=== PATIENT | male | born 1960 | race American Indian/Alaskan Native ===

== ENCOUNTER 2018-03-23 14:00 | Inpatient (IN) | payer OTHER ==
[2018-03-23] MEDS ORDERED: Metoprolol 1 mg/ml Inj IVP STA (14:24)
[2018-03-23] MEDS ORDERED: Nitroglycerin 2% Ointment Foilpak UD TOP STA (14:28)
[2018-03-23] MEDS ORDERED: Metoprolol 1 mg/ml Inj IVP ONE (14:42)
[2018-03-23] MEDS ORDERED: Nitroglycerin 2% Ointment Foilpak UD TOP ONE (14:43)
--- NOTE | 2018-03-23 14:44 | ED PDOC ---
HPI: Chest Pain Time Seen by Provider: 03/23/18 14:12 Chief Complaint (Nursing): Chest Pain Chief Complaint (Provider): Chest Pain History Per: Patient History/Exam Limitations: no limitations Onset/Duration Of Symptoms: Days (x1) Current Symptoms Are (Timing): Still Present Severity: Severe Nitro Therapy Administered: 3, Per EMS Additional Complaint(s): 58 y/o male with a PMHx of DM (Type II), HTN and End Stage Chronic Kidney Disease presents to the ED complaining of chest pain, onset today. Patient reports of vomiting yesterday that worsened today and came with severe chest pain in the substernal area. Patient additionally reports of having type II diabetes that is no longer controlled by medications but controlled by diet. Patient states HTN has been difficult to control. Patient's partner reports while at dialysis yesterday, he began vomiting and was given antibiotics there to control vomiting. However, patient reports he is unsure exactly what they gave him. Patient states he has not been able to take HTN medications today due to vomiting. EMS was called and paramedics arrived on the scene and administered Zofran and 3 tablets of Nitroglycerin. Patient continues to complain of pain here in the ED. Blood pressure is still elevated and pain is now associated with shortness of breath and nausea. Patient reports chest pain is non-radiating. Patient has not vomited while in the ED. Patient states he usually goes to [facility] because his physicians are affiliated there, however patient did not like his last encounter with a physician there so he decided to come here instead. PMD: Sigifredo Barton Past Medical History Reviewed: Historical Data, Nursing Documentation, Vital Signs Vital Signs: Last Vital Signs Temp 97.6 F 03/23/18 14:20 Pulse 79 03/23/18 14:57 Resp 19 03/23/18 14:20 BP 240/140 H 03/23/18 14:51 Pulse Ox 97 03/23/18 14:57 - Medical History PMH: Diabetes (Type II ), HTN, Pneumonia, Pneumothorax, Chronic Kidney Disease - Surgical History Surgical History: No Surg Hx - Family History Family History: States: No Known Family Hx - Social History Current smoker - smoking cessation education provided: No Alcohol: None Drugs: Denies - Allergies Allergies/Adverse Reactions: Allergies Allergy/AdvReac Type Severity Reaction Status Date / Time ibuprofen [From Motrin] Allergy RASH Verified 03/23/18 14:15 shellfish derived Allergy SHORTNESS Verified 03/23/18 14:14 OF BREATH nuts Allergy RASH Uncoded 03/23/18 14:13 salmon Allergy RASH Uncoded 03/23/18 14:15 DAVID Risk Score for UA/NSTEMI - DAVID Risk Score Age > 64: NO 3 or more CAD Risk Factors: NO Known CAD (Stenosis greater than 50%): NO Aspirin use in past 7 days: NO EKG ST changes greater than 0.5mm: NO Positive Cardiac Marker: NO DAVID Score: 0 Risk %: 5% Curb-65 Severity Score - CURB-65 Severity Score Confusion: No Bun >19mg/dl (>7mmol/L): No Respiratory Rate greater than/equal to 30: No Systolic BP <90 or Diastolic BP less than/equal 60mmHg: No Age >64: No Curb-65 Score: 0 Percentage 30-day mortality: 0.6% Wells Criteria for PE - Wells Criteria for Pulmonary Embolism Clinical Signs and Symptoms of DVT: No P.E is #1 Diagnosis, or Equally Likely: No Heart Rate >100: No Immobilization at least 3 days;Surgery previous 4 weeks: No Previous, objectively diagnosed PE or DVT: No Hemoptysis: No Malignancy w/treatment within 6 months, or palliative: No Total Score: 0 Review of Systems ROS Statement: Except As Marked, All Systems Reviewed And Found Negative Cardiovascular: Positive for: Chest Pain Respiratory: Positive for: Shortness of Breath Gastrointestinal: Positive for: Nausea, Vomiting Physical Exam - Reviewed Nursing Documentation Reviewed: Yes Vital Signs Reviewed: Yes - Physical Exam Appears: Positive for: Uncomfortable (Moderate discomfort. Patient lying on his side in the ED), In Acute Distress Head Exam: Positive for: ATRAUMATIC, NORMOCEPHALIC Skin: Positive for: Normal Color, Warm, Dry Cardiovascular/Chest: Positive for: Regular Rate, Rhythm. Negative for: Murmur Respiratory: Positive for: Normal Breath Sounds. Negative for: Respiratory Distress Extremity: Positive for: Swelling (lower extremity edema (Unsure depth due to patient's discomfort when someone touches his leg)) Neurologic/Psych: Positive for: Alert (Awake (Patient's eyes are closed due to pain)), Oriented. Negative for: Motor/Sensory Deficits - ECG ECG Rhythm: Positive for: Sinus Rhythm Interpretation Of Abn EKG: Inverted T-Wave in lead 5 and 6 and Biphasic ABL Rate: 79 O2 Sat by Pulse Oximetry: 97 (RA) Pulse Ox Interpretation: Normal Medical Decision Making Medical Decision Making: Time: 1438 Impression: Chest Pain Plan: -- EKG -- Lipase -- Troponin I -- CBC with differentials -- PTT -- CXR One View -- Glucose, POC -- Metoprolol 5 mg IVP -- Morphine 2 mg IVP -- Nitroglycerin 2% 1 ea TOP -- Business Insurance Agent -- IV Insertion -- Urinalysis -- Most likely due to vomiting. HTN poorly controlled. Disposition - Clinical Impression Clinical Impression: Chest pain - Patient ED Disposition Is Patient to be Admitted: Transfer of Care - Disposition Disposition: Transfer of Care Disposition Time: 15:07 Condition: GUARDED Forms: [employer] (Kosovan) Patient Signed Over To: Manuel Rea
[2018-03-23 15:20] LABS: BASO # 0.1 K/uL (0.0-0.2); BASO % 1.1 % (0.0-2.0); EOS # 0.1 K/uL (0.0-0.7); EOS % 1.6 % (0.0-4.0); HEMOGLOBIN 9.2 g/dL (12.0-18.0); LYMPH # 0.4 K/uL (1.0-4.3); LYMPH % 4.6 % (20.0-40.0); MEAN CELL VOLUME 84.8 fl (80.0-94.0); MEAN CORPUSCULAR HEMOGLOBIN 27.4 pg (27.0-31.0); MEAN CORPUSCULAR HGB CONC 32.3 g/dL (33.0-37.0); MEAN PLATELET VOLUME 7.1 fl (7.2-11.7); MONO # 0.3 K/uL (0.0-0.8); MONO % 3.8 % (0.0-10.0); NEUT # 7.2 K/uL (1.8-7.0); NEUT % 88.9 % (50.0-75.0); PLATELET COUNT 176 K/uL (130-400); RBC 3.37 Mil/uL (4.40-5.90); WHITE BLOOD COUNT 8.1 K/uL (4.8-10.8)
[2018-03-23 15:29] LABS: PROTHROMBIN TIME 10.8 Seconds (9.8-13.1)
[2018-03-23 15:32] LABS: ALB/GLOB RATIO 1.2 (1.0-2.1); ALBUMIN 3.2 g/dL (3.5-5.0); CALCIUM 9.3 mg/dL (8.4-10.2); PARTIAL THROMBOPLASTIN TIME 38.8 Seconds (25.6-37.1)
[2018-03-23 15:43] LABS: TROPONIN I 0.021 ng/mL (0.00-0.120)
--- NOTE | 2018-03-23 16:10 | ED PDOC ---
- Laboratory Results Result Diagrams: 03/23/18 15:16 03/23/18 15:16 Interpretation Of Abn Labs: bun and cr elevation - ECG ECG: Positive for: Interpreted By Me, Viewed By Me ECG Rhythm: Positive for: ST/T Changes O2 Sat by Pulse Oximetry: 97 Pulse Ox Interpretation: Normal - Radiology X-Ray: Read By Radiologist X-Ray Interpretation: Other (vascular congestion and effusions b/l) - CT Scan/US ct Other Rad Studies (CT/US): Read By Radiologist Other Rad Interpretation: no acute bowel inflammation - Progress ED Course And Treament: 1508: Stable. Took over care from Dr. [place]. Clint on labs. Here with abd pain, chest pain, nausea, vomit. Blood pressure has been high. Seen by [facility] recently and had permacath put in. Had dialysis done yesterday. Hx: pneumonia , pulm effusion, dialysis with kidney failure, htn, dm. 1827: Stable. AAOx3. Pain free. Spoke with Dr. Bryan. Will admit tele obs. Likely multiple chronic findings on CT. BP reduced from 240 to 190 sytolic. Will continue monitoring. Do not want to drop BP too much over a short period. Dr. Bryan will address further orders when pt. reaches floor. Will hold ASA as pt. states he can't take it. Disposition - Clinical Impression Clinical Impression: Chest pain, Abdominal pain, Vomiting, Hypertensive urgency - POA Present On Arrival: None - Disposition Disposition: Hospitalized as Observation Patient Disposition Time: 18:42 Condition: FAIR
[2018-03-23] MEDS ORDERED: Morphine 4 MG/ML VIAL ONE ×2 (16:14→22:03)
--- NOTE | 2018-03-23 16:16 | RAD ---
Date of service: 03/23/2018 PROCEDURE: CHEST RADIOGRAPH, 1 VIEW HISTORY: cp COMPARISON: None available. FINDINGS: Right IJ dialysis catheter with tips in the SVC. LUNGS: Findings suggest mild pulmonary valgus congestion possibly due to fluid overload with right lower lobe atelectasis and or infiltrate and right-sided effusion. Small left-sided effusion also felt to be present with left basilar atelectasis. PLEURA: No pneumothorax or pleural fluid seen. CARDIOVASCULAR: Marked cardiomegaly. OSSEOUS STRUCTURES: No significant abnormalities. VISUALIZED UPPER ABDOMEN: Normal. OTHER FINDINGS: None. IMPRESSION: Findings suggest mild pulmonary valgus congestion possibly due to fluid overload with right lower lobe atelectasis and or infiltrate and right-sided effusion. Small left-sided effusion also felt to be present with left basilar atelectasis.
[2018-03-23] MEDS: Labetalol 5 mg/ml Inj 20ML IVP ONE ×2 (16:22→20:38)
[2018-03-23] MEDS: Morphine 4 MG/ML VIAL IV ONE ×2 (16:31→22:03)
[2018-03-23 17:09] LABS: ANISOCYTOSIS SLIGHT; BASOPHIL 1 % (0-2); LYMPHOCYTE 6 % (20-50); MONOCYTE 5 % (0-10); NEUTROPHIL 88 % (42-75); PLATELET ESTIMATE NORMAL (NORMAL); TOTAL CELLS COUNTED 100
[2018-03-23 17:10] LABS: HYPOCHROMIC MARKED
--- NOTE | 2018-03-23 17:14 | CT ---
Date of service: 03/23/2018 PROCEDURE: CT Abdomen and Pelvis without intravenous contrast HISTORY: R/O stone COMPARISON: None. TECHNIQUE: Contiguous helical/transaxial sections of the abdomen pelvis performed without oral or intravenous contrast material. Additional 2D sagittal and coronal reformats generated Radiation dose: Total exam DLP = 368.38 mGy-cm. This CT exam was performed using one or more of the following dose reduction techniques: Automated exposure control, adjustment of the mA and/or kV according to patient size, and/or use of iterative reconstruction technique. FINDINGS: LOWER THORAX: Moderate-sized right-sided and smaller left-sided effusion. . There appears to be some associated minor atelectasis both lung bases as well right greater than left. No evidence of basilar pneumothorax. Heart is enlarged with moderate -large pericardial effusion pericardial effusion. LIVER: The liver appears of borderline/mildly enlarged measuring nearly 19 cm in CC dimension. No obvious hepatic mass or collection seen on this noncontrast exam. . GALLBLADDER AND BILE DUCTS: Gallbladder physiologically distended. No evidence of intraluminal gallbladder calculi. PANCREAS: Pancreas is poorly delineated on this exam, particularly the pancreatic head region due to the lack of oral and intravenous contrast material as well as a paucity of intraperitoneal fat. . . Pancreas appears somewhat atrophic and fatty replaced. SPLEEN: Few tiny splenic calcifications are present some of which could be vascular in origin however the possibility of small calcified granulomata not excluded. Clinical correlation recommended. ADRENALS: No adrenal lesions are identified. KIDNEYS AND URETERS: Right renal cyst. No evidence of nephrolithiasis or hydronephrosis. VASCULATURE: Unremarkable. No aortic aneurysm. BOWEL: Evaluation of the bowel is limited due to the lack of lack of oral and intravenous contrast material as well as the lack of intraperitoneal fat. Stomach is incompletely distended. Visualized loops of small bowel are poorly delineated though do not appear obstructed. Stool is present throughout the large bowel. Thickening. There appear to be a few colonic diverticula along sigmoid colon however no radiographic evidence of acute diverticulitis. APPENDIX: Normal appearing appendix PERITONEUM: Mild infiltration changes within the of mesentery nonspecific. No definitive evidence of free intraperitoneal air or definitive free fluid. . Mild infiltration changes within the subcutaneous tissues possibly representing mild anasarca. Clinical correlation recommended LYMPH NODES: Unremarkable. No enlarged lymph nodes. BLADDER: Urinary bladder is thick-walled in appearance in part due to incomplete distention and likely muscular hypertrophy however correlation with urinalysis recommended to exclude cystitis. REPRODUCTIVE: Prostate gland appears grossly unremarkable so far as can be seen. BONES: Few vague sclerotic densities noted the most conspicuous of which is located in the T9 and to a lesser degree T10 and less so the T8, T11 and T12 segments of uncertain etiology. Consider follow-up bone scan to exclude the possibility of early metastatic disease. Apparent butterfly vertebral body L5 segment OTHER FINDINGS: None. IMPRESSION: Moderate-sized right-sided and smaller left-sided effusion. . There appears to be some associated minor atelectasis both lung bases as well right greater than left. No evidence of basilar pneumothorax. Heart is enlarged with moderate -large pericardial effusion pericardial effusion. . Right renal cyst. Localized wall thickening of the urinary bladder likely due to incomplete distention and muscular hypertrophy however correlation urinalysis to exclude cystitis Mild infiltration changes within the subcutaneous tissues possibly representing mild anasarca. Clinical correlation recommended Few vague sclerotic densities noted the most conspicuous of which is located in the T9 and to a lesser degree T10 and less so the T8, T11 and T12 segments of uncertain etiology. Consider follow-up bone scan to exclude the possibility of early metastatic disease.
[2018-03-23] MEDS ORDERED: Labetalol 5mg/ml (4ml) IVP ONE ×2 (20:30→22:00)
[2018-03-23] MEDS ORDERED: Labetalol 5 mg/ml Inj 20ML IVP ONE (22:15)
[2018-03-24] MEDS ORDERED: Nicardipine 20 MG/200 ML 20 MG/200 ML BAG IV ONE ×2 (00:37→04:00)
[2018-03-24 02:04] VITALS: BMI 25.7
--- NOTE | 2018-03-24 07:34 | CP.PCM.CON ---
History of Present Illness - History of Present Illness History of Present Illness: Pt is a 58 y/o male with a PMHx of DM (Type II), HTN and End Stage Chronic Kidney Disease presents recently started dialysis 2-3 weeks back. He came into the ED with chief complaint of chest pain and uncontrolled HTN initially 240 systolic which was started on iv nicardipine drip. Patient reports of n/v and chest pain in the substernal area. Patient additionally reports of having type II diabetes that is no longer controlled by medications but controlled by diet. Patient states HTN has been difficult to control and he has been compliant with his medications. Dialysis session yesterday and due to n/v didn't take home meds for blood pressure. EMS was called and paramedics arrived on the scene and administered Zofran and 3 tablets of Nitroglycerin. Blood pressure is still elevated but better controlled since the drip was started. Patient states he usually goes to [facility] because his physicians are affiliated there. PMD: Sigifredo Barton Last Vital Signs Temp 97.6 F 03/23/18 14:20 Pulse 79 03/23/18 14:57 Resp 19 03/23/18 14:20 BP 240/140 H 03/23/18 14:51 Pulse Ox 97 03/23/18 14:57 PMH: Diabetes (Type II ), HTN, Pneumonia, Pneumothorax, Chronic Kidney Disease Surgical History: No Surg Hx Family History: States: No Known Family Hx Social Hx: denies any toxic habits - Allergies/Adverse Reactions: Allergies Allergy/AdvReac Type Severity Reaction Status Date / Time ibuprofen [From Motrin] Allergy RASH Verified 03/23/18 14:15 shellfish derived Allergy SHORTNESS Verified 03/23/18 14:14 OF BREATH nuts Allergy RASH Uncoded 03/23/18 14:13 salmon Allergy RASH Uncoded 03/23/18 14:15 Review of Systems - Constitutional Constitutional: absent: As Per HPI, Anorexia, Chills, Daytime Sleepiness, Excessive Sweating, Fatigue, Fever, Frequent Falls, Headache, Increased Appetite , Lethargy, Malaise, Night Sweats, Snoring, Sleep Apnea, Weight Gain, Weight Loss, Weakness, Other - EENT Eyes: absent: As Per HPI, Blind Spots, Blurred Vision, Change in Vision, Decreased Night Vision, Diplopia, Discharge, Dry Eye, Exophthalmos, Floaters, Irritation, Itchy Eyes, Loss of Peripheral Vision, Pain, Photophobia, Requires Corrective Lenses, Sees Flashes, Spots in Vision, Tunnel Vision, Other Visual Disturbances, Loss of Vision, Other Ears: absent: As Per HPI, Decreased Hearing, Ear Discharge, Ear Pain, Tinnitus, Abnormal Hearing, Disequilibrium, Dizziness, Other Nose/Mouth/Throat: absent: As Per HPI, Epistaxis, Nasal Congestion, Nasal Discharge, Nasal Obstruction, Nasal Trauma, Nose Pain, Post Nasal Drip, Sinus Pain, Sinus Pressure, Bleeding Gums, Change in Voice, Dental Pain, Dry Mouth, Dysphagia, Halitosis, Hoarsness, Lip Swelling, Mouth Lesions, Mouth Pain, Odynophagia, Sore Throat, Throat Swelling, Tongue Swelling, Facial Pain, Neck Pain, Neck Mass, Other - Cardiovascular Cardiovascular: Chest Pain - Respiratory Respiratory: absent: As Per HPI, Cough, Dyspnea, Hemoptysis, Dyspnea on Exertion , Wheezing, Snoring, Stridor, Pain on Inspiration, Chest Congestion, Excessive Mucous Production, Change in Mucous Color, Pain with Coughing, Other - Gastrointestinal Gastrointestinal: Vomiting - Genitourinary Genitourinary: absent: As Per HPI, Change in Urinary Stream, Difficulty Urinating, Dysuria, Flank Pain, Hematuria, Pyuria, Nocturia, Urinary Incontinence, Urinary Frequency, Urinary Hesitance, Urinary Urgency, Voiding Freq/Small Amts, Freq UTI, Hx Renal/Bladder Calculi, Hx /Renal Surgery, Bladder Distension, Other - Musculoskeletal Musculoskeletal: absent: As Per HPI, Abnormal Gait, Arthralgias, Atrophy, Back Pain, Deformity, Joint Swelling, Limited Range of Motion, Loss of Height, Muscle Cramps, Muscle Weakness, Myalgias, Neck Pain, Numbness, Radiating Pain into Limb, Stiffness, Tingling, Other - Integumentary Integumentary: absent: As Per HPI, Acne, Alopecia, Bleeding Lesions, Change in Hair, Change in Nails, Change in Pigmentation, Changing Lesions, Dry Skin, Erythema, Furuncle, Hirsutism, Lesions, New Lesions, Non-Healing Lesions, Photosensitivity, Pruritus, Rash, Skin Pain, Skin Ulcer, Sores, Striae, Swelling , Unusual Bruising, Wounds, Jaundice, Other - Neurological Neurological: absent: As Per HPI, Abnormal Gait, Abnormal Hearing, Abnormal Movements, Abnormal Speech, Behavioral Changes, Burning Sensations, Confusion, Convulsions, Disequilibrium, Dizziness, Numbness, Focal Weakness, Frequent Falls , Headaches, Lack of Coordination, Loss of Vision, Memory Loss, Paresthesias, Radicular Pain, Restless Legs, Sensory Deficit, Syncope, Tingling, Tremor, Vertigo, Weakness, Other Visual Disturbances, Other - Psychiatric Psychiatric: absent: As Per HPI, Abnormal Sleep Pattern, Anhedonia, Anxiety, Auditory Hallucinations, Behavioral Changes, Change in Appetite, Change in Libido, Confusion, Depression, Difficulty Concentrating, Hallucinations, Homicidal Ideation, Hopelessness, Irritability, Memory Loss, Mood Swings, Panic Attacks, Paranoia, Suicidal Ideation, Visual Hallucinations, Tactile Hallucinations, Other - Endocrine Endocrine: absent: As Per HPI, Change in Body Appearance, Change in Libido, Cold Intolorance, Deepening of Voice, Excessive Sweating, Fatigue, Flushing, Heat Intolorance, Increase in Ring/Shoe/Hat Size, Palpitations, Polydipsia, Polyphagia, Polyuria, Other - Hematologic/Lymphatic Hematologic: absent: As Per HPI, Easy Bleeding, Easy Bruising, Lymphadenopathy, Other Past Patient History - Past Medical History & Family History Past Medical History?: Yes - Past Social History Smoking Status: Never Smoked Chewing Tobacco Use: No Cigar Use: No - CARDIAC Hx Cardiac Disorders: Yes - PULMONARY Hx Respiratory Disorders: Yes Hx Asthma: Yes Hx Pneumonia: Yes Other/Comment: pleural effussion,pneumothorax - NEUROLOGICAL Hx Neurological Disorder: No - HEENT Hx HEENT Problems: No Other/Comment: dryness around his eyes - RENAL Hx Chronic Kidney Disease: Yes - ENDOCRINE/METABOLIC Hx Endocrine Disorders: Yes Hx Diabetes Mellitus Type 2: Yes - HEMATOLOGICAL/ONCOLOGICAL Hx Blood Disorders: No Hx AIDS: No Hx Human Immunodeficiency Virus (HIV): No - INTEGUMENTARY Hx Dermatological Problems: No - MUSCULOSKELETAL/RHEUMATOLOGICAL Hx Musculoskeletal Disorders: No Hx Falls: No - GASTROINTESTINAL Hx Gastrointestinal Disorders: No - GENITOURINARY/GYNECOLOGICAL Hx Genitourinary Disorders: No - PSYCHIATRIC Hx Psychophysiologic Disorder: No Hx Sexual Abuse: No Hx Substance Use: No - SURGICAL HISTORY Hx Surgeries: No Other/Comment: permacath insertion - ANESTHESIA Hx Anesthesia: Yes Hx Anesthesia Reactions: No Meds Allergies/Adverse Reactions: Allergies Allergy/AdvReac Type Severity Reaction Status Date / Time ibuprofen [From Motrin] Allergy RASH Verified 03/23/18 14:15 shellfish derived Allergy SHORTNESS Verified 03/23/18 14:14 OF BREATH nuts Allergy RASH Uncoded 03/23/18 14:13 salmon Allergy RASH Uncoded 03/23/18 14:15 - Medications Medications: Current Medications Allopurinol (Zyloprim) 100 mg PO DAILY [facility] Clonidine HCl (Catapres) 0.2 mg PO DAILY [facility] Ergocalciferol (Drisdol 50,000 Intl Units Cap) 1 cap PO MWF [facility] Famotidine (Pepcid) 20 mg IVP DAILY [facility] Nicardipine HCl (Cardene Iv Premix) 20 mg in 200 mls @ 25 mls/hr IV .Q8H ONE PRN Reason: Protocol Stop: 03/24/18 11:59 Last Admin: 03/24/18 04:00 Dose: 25 mls/hr Labetalol HCl (Trandate) 600 mg PO BID [facility] Morphine Sulfate (Morphine) 2 mg IVP Q4 PRN PRN Reason: Pain, moderate (4-7) Morphine Sulfate (Morphine) 4 mg IVP Q4 PRN PRN Reason: Pain, severe (8-10) Nitroglycerin (Nitrostat Sl Tab) 0.4 mg SL Q5M PRN PRN Reason: Pain, moderate (4-7) Ondansetron HCl (Zofran Inj) 4 mg IVP Q4 PRN PRN Reason: Nausea/Vomiting Sevelamer HCl (Renagel) 2,400 mg PO TID [facility] Physical Exam - Head Exam Head Exam: ATRAUMATIC, NORMAL INSPECTION, NORMOCEPHALIC - Eye Exam Eye Exam: EOMI, Normal appearance, PERRL Pupil Exam: NORMAL ACCOMODATION - ENT Exam ENT Exam: Mucous Membranes Moist, Normal Exam - Neck Exam Neck exam: Positive for: Normal Inspection - Respiratory Exam Respiratory Exam: Clear to Auscultation Bilateral - Cardiovascular Exam Cardiovascular Exam: REGULAR RHYTHM - GI/Abdominal Exam GI & Abdominal Exam: Normal Bowel Sounds, Soft - Back Exam Back exam: NORMAL INSPECTION - Neurological Exam Neurological exam: CN II-XII Intact, Normal Gait, Oriented x3, Reflexes Normal Results - Vital Signs Recent Vital Signs: Last Vital Signs Temp 98.1 F 03/24/18 04:00 Pulse 83 03/24/18 07:00 Resp 16 03/24/18 07:00 BP 152/76 H 03/24/18 07:00 Pulse Ox 98 03/24/18 07:00 - Labs Result Diagrams: 03/23/18 15:16 03/23/18 15:16 Labs: Laboratory Results - last 24 hr 03/23/18 03/23/18 03/23/18 14:12 15:16 15:16 WBC 8.1 RBC 3.37 L Hgb 9.2 L Hct 28.6 L MCV 84.8 MCH 27.4 MCHC 32.3 L RDW 17.0 H Plt Count 176 MPV 7.1 L Neut % (Auto) 88.9 H Lymph % (Auto) 4.6 L Haines % (Auto) 3.8 Eos % (Auto) 1.6 Baso % (Auto) 1.1 Neut # (Auto) 7.2 H Lymph # (Auto) 0.4 L Haines # (Auto) 0.3 Eos # (Auto) 0.1 Baso # (Auto) 0.1 Neutrophils % (Manual) 88 H Lymphocytes % (Manual) 6 L Monocytes % (Manual) 5 Basophils % (Manual) 1 Platelet Estimate Normal Hypochromasia (manual) Marked Anisocytosis (manual) Slight PT INR APTT Sodium 137 Potassium 4.1 Chloride 99 Carbon Dioxide 31 H Anion Gap 11 BUN 27 H Creatinine 4.1 H Est GFR ( Amer) 18 Est GFR (Non-Af Amer) 15 POC Glucose (mg/dL) 125 H Random Glucose 133 H Calcium 9.3 Total Bilirubin 1.0 AST 37 ALT 32 Alkaline Phosphatase 117 Troponin I 0.0210 Total Protein 5.8 L Albumin 3.2 L Globulin 2.6 Albumin/Globulin Ratio 1.2 Lipase 161 03/23/18 03/24/18 03/24/18 15:16 00:41 06:10 WBC RBC Hgb Hct MCV MCH MCHC RDW Plt Count MPV Neut % (Auto) Lymph % (Auto) Haines % (Auto) Eos % (Auto) Baso % (Auto) Neut # (Auto) Lymph # (Auto) Haines # (Auto) Eos # (Auto) Baso # (Auto) Neutrophils % (Manual) Lymphocytes % (Manual) Monocytes % (Manual) Basophils % (Manual) Platelet Estimate Hypochromasia (manual) Anisocytosis (manual) PT 10.8 INR 1.0 APTT 38.8 H Sodium Potassium Chloride Carbon Dioxide Anion Gap BUN Creatinine Est GFR ( Amer) Est GFR (Non-Af Amer) POC Glucose (mg/dL) 122 H Random Glucose Calcium Total Bilirubin AST ALT Alkaline Phosphatase Troponin I 0.0700 Total Protein Albumin Globulin Albumin/Globulin Ratio Lipase Assessment & Plan - Assessment and Plan (Free Text) Assessment: This is a gentleman with Dm, HTn, ESRD on HD who comes in with hypertensive emergency and chest pain, finally controlled with nicardipine drip, trops x2 negative. Plan: 1) Hypertensive emergency - pt with chest pain, n/v, and blood pressures consistantly 240's systolic - nifedipine drip started with better results - trops and ekg x 3 to rule out ACS - ct head negative - po meds not initiated due to poor oral intake of medications and n/v 2) ESRD on Hd- creatinie 4.1 - continue with iv drip for now - last dialysis 1-2 days back 3) Chest pain- rule out ACS thus far negative x 2 - serial ekg and trops - not able to take po for now, will hold po lipitor and asa for now 4) Dm- not on any home meds - serial accuchecks ac and Hs - not on any insulin due to poor oral intake - Date & Time Date: 03/24/18 Time: 07:43
[2018-03-24 07:36] LABS: HEMOGLOBIN 8.5 g/dL (12.0-18.0); MEAN CELL VOLUME 83.4 fl (80.0-94.0); MEAN CORPUSCULAR HEMOGLOBIN 28.2 pg (27.0-31.0); MEAN CORPUSCULAR HGB CONC 33.8 g/dL (33.0-37.0); RBC 3.02 Mil/uL (4.40-5.90); WHITE BLOOD COUNT 7.3 K/uL (4.8-10.8)
[2018-03-24 07:56] LABS: TROPONIN I 0.115 ng/mL (0.00-0.120)
[2018-03-24 08:10] LABS: ALB/GLOB RATIO 1.1 (1.0-2.1); ALBUMIN 2.8 g/dL (3.5-5.0); CALCIUM 9.1 mg/dL (8.4-10.2)
--- NOTE | 2018-03-24 08:22 | CARD ---
APPROVED REPORT Date of service: 03/23/2018 EKG Measurement Heart [id number] <Conclusion> Normal sinus rhythm Left axis deviation T wave abnormality, consider lateral ischemia Prolonged QT Abnormal ECG
[2018-03-24] MEDS ORDERED: NIFEdipine 90 mg ER Tab PO SCH (09:00)
--- NOTE | 2018-03-24 09:35 | CP.PCM.HP ---
History of Present Illness - History of Present Illness History of Present Illness: 58 year old male with a PMHx DMII, HTN and ESRD presented to ED with chest pain and uncontrolled HTN associated with nausea/vomiting. Patient recently started dialysis 2 weeks ago. Patient required nicardipine drip to control BP. Patient was seen and examined at bedside today. States chest pain, nausea, and vomiting have resolved. Patient states due to n/v yesterday didn't take home meds for blood pressure. No other complaints offered at this time. Denies headache, abdominal pain, change of vision, fever, chills, back pain. PMD: Sigifredo Barton Present on Admission - Present on Admission Any Indicators Present on Admission: No Review of Systems - Review of Systems All systems: reviewed and no additional remarkable complaints except (mentioned above) Past Patient History - Past Medical History & Family History Past Medical History?: Yes Past Family History: Reviewed and not pertinent - Past Social History Smoking Status: Never Smoked Chewing Tobacco Use: No Cigar Use: No - CARDIAC Hx Cardiac Disorders: Yes - PULMONARY Hx Respiratory Disorders: Yes Hx Asthma: Yes Hx Pneumonia: Yes Other/Comment: pleural effussion,pneumothorax - NEUROLOGICAL Hx Neurological Disorder: No - HEENT Hx HEENT Problems: No Other/Comment: dryness around his eyes - RENAL Hx Chronic Kidney Disease: Yes - ENDOCRINE/METABOLIC Hx Endocrine Disorders: Yes Hx Diabetes Mellitus Type 2: Yes - HEMATOLOGICAL/ONCOLOGICAL Hx Blood Disorders: No Hx AIDS: No Hx Human Immunodeficiency Virus (HIV): No - INTEGUMENTARY Hx Dermatological Problems: No - MUSCULOSKELETAL/RHEUMATOLOGICAL Hx Musculoskeletal Disorders: No Hx Falls: No - GASTROINTESTINAL Hx Gastrointestinal Disorders: No - GENITOURINARY/GYNECOLOGICAL Hx Genitourinary Disorders: No - PSYCHIATRIC Hx Psychophysiologic Disorder: No Hx Sexual Abuse: No Hx Substance Use: No - SURGICAL HISTORY Hx Surgeries: No Other/Comment: permacath insertion - ANESTHESIA Hx Anesthesia: Yes Hx Anesthesia Reactions: No Meds Allergies/Adverse Reactions: Allergies Allergy/AdvReac Type Severity Reaction Status Date / Time ibuprofen [From Motrin] Allergy RASH Verified 03/23/18 14:15 shellfish derived Allergy SHORTNESS Verified 03/23/18 14:14 OF BREATH nuts Allergy RASH Uncoded 03/23/18 14:13 salmon Allergy RASH Uncoded 03/23/18 14:15 Physical Exam - Constitutional Appears: Well, Non-toxic, No Acute Distress - Head Exam Head Exam: ATRAUMATIC, NORMAL INSPECTION, NORMOCEPHALIC - Eye Exam Eye Exam: EOMI, Normal appearance, PERRL - Neck Exam Neck exam: Positive for: Normal Inspection - Respiratory Exam Respiratory Exam: Clear to Auscultation Bilateral, NORMAL BREATHING PATTERN - Cardiovascular Exam Cardiovascular Exam: REGULAR RHYTHM, +S1, +S2 - GI/Abdominal Exam GI & Abdominal Exam: Normal Bowel Sounds, Soft. absent: Tenderness - Back Exam Back exam: NORMAL INSPECTION - Neurological Exam Neurological exam: Alert, Oriented x3 - Psychiatric Exam Psychiatric exam: Normal Affect, Normal Mood - Skin Skin Exam: Dry, Intact, Normal Color, Warm Results - Vital Signs Recent Vital Signs: Last Vital Signs Temp 98.3 F 03/24/18 08:00 Pulse 81 03/24/18 08:41 Resp 25 H 03/24/18 08:00 BP 144/74 03/24/18 08:41 Pulse Ox 93 L 03/24/18 08:00 - Labs Result Diagrams: 03/24/18 06:10 03/24/18 06:10 Labs: Laboratory Results - last 24 hr 03/23/18 03/23/18 03/23/18 14:12 15:16 15:16 WBC 8.1 RBC 3.37 L Hgb 9.2 L Hct 28.6 L MCV 84.8 MCH 27.4 MCHC 32.3 L RDW 17.0 H Plt Count 176 MPV 7.1 L Neut % (Auto) 88.9 H Lymph % (Auto) 4.6 L [place] % (Auto) 3.8 Eos % (Auto) 1.6 Baso % (Auto) 1.1 Neut # (Auto) 7.2 H Lymph # (Auto) 0.4 L [place] # (Auto) 0.3 Eos # (Auto) 0.1 Baso # (Auto) 0.1 Neutrophils % (Manual) 88 H Lymphocytes % (Manual) 6 L Monocytes % (Manual) 5 Basophils % (Manual) 1 Platelet Estimate Normal Hypochromasia (manual) Marked Anisocytosis (manual) Slight PT INR APTT Sodium 137 Potassium 4.1 Chloride 99 Carbon Dioxide 31 H Anion Gap 11 BUN 27 H Creatinine 4.1 H Est GFR ( Amer) 18 Est GFR (Non-Af Amer) 15 POC Glucose (mg/dL) 125 H Random Glucose 133 H Calcium 9.3 Total Bilirubin 1.0 AST 37 ALT 32 Alkaline Phosphatase 117 Troponin I 0.0210 Total Protein 5.8 L Albumin 3.2 L Globulin 2.6 Albumin/Globulin Ratio 1.2 Lipase 161 03/23/18 03/24/18 03/24/18 15:16 00:41 06:10 WBC 7.3 RBC 3.02 L Hgb 8.5 L Hct 25.2 L MCV 83.4 MCH 28.2 MCHC 33.8 RDW 17.0 H Plt Count 175 MPV Neut % (Auto) Lymph % (Auto) [place] % (Auto) Eos % (Auto) Baso % (Auto) Neut # (Auto) Lymph # (Auto) [place] # (Auto) Eos # (Auto) Baso # (Auto) Neutrophils % (Manual) Lymphocytes % (Manual) Monocytes % (Manual) Basophils % (Manual) Platelet Estimate Hypochromasia (manual) Anisocytosis (manual) PT 10.8 INR 1.0 APTT 38.8 H Sodium Potassium Chloride Carbon Dioxide Anion Gap BUN Creatinine Est GFR ( Amer) Est GFR (Non-Af Amer) POC Glucose (mg/dL) Random Glucose Calcium Total Bilirubin AST ALT Alkaline Phosphatase Troponin I 0.0700 Total Protein Albumin Globulin Albumin/Globulin Ratio Lipase 03/24/18 03/24/18 06:10 06:10 WBC RBC Hgb Hct MCV MCH MCHC RDW Plt Count MPV Neut % (Auto) Lymph % (Auto) [place] % (Auto) Eos % (Auto) Baso % (Auto) Neut # (Auto) Lymph # (Auto) [place] # (Auto) Eos # (Auto) Baso # (Auto) Neutrophils % (Manual) Lymphocytes % (Manual) Monocytes % (Manual) Basophils % (Manual) Platelet Estimate Hypochromasia (manual) Anisocytosis (manual) PT INR APTT Sodium 135 Potassium 4.2 Chloride 98 Carbon Dioxide 35 H Anion Gap 6 L BUN 36 H Creatinine 5.0 H Est GFR ( Amer) 15 Est GFR (Non-Af Amer) 12 POC Glucose (mg/dL) 122 H Random Glucose 122 H Calcium 9.1 Total Bilirubin 0.8 AST 40 ALT 30 Alkaline Phosphatase 103 Troponin I 0.1150 Total Protein 5.2 L Albumin 2.8 L Globulin 2.5 Albumin/Globulin Ratio 1.1 Lipase Assessment & Plan - Assessment and Plan (Free Text) Assessment: 58 yo w/ DMII, HTN, ESRD admitted due to hypertensive emergency and chest pain Plan: 1) Hypertensive emergency - resolved BP improved with nicardipine drip asymptomatic d/c nicardipine drip start oral meds cardiology consulted appreciate recommendations ct head negative 2) ESRD on HD (MWF) consulted nephrology pleural effusion/pericardial effusion likely due to esrd as per patient chronic 4) Chest pain- rule out ACS asymptomatic trop x 3 neg cardiology consulted 5) DM, type II not on any home meds accucheck ACHS renal/diabetic diet dvt prophylaxis SC lovenox
--- NOTE | 2018-03-24 09:55 | CP.PCM.CON ---
History of Present Illness - History of Present Illness History of Present Illness: Pt is a 58 y/o male with a PMHx of DM (Type II), HTN and End Stage Chronic Kidney Disease was admiited to ICU lasy night with CP and very high BP. Patient hs ESRD and was started dialysis 2-3 weeks back. He came into the ED with chief complaint of chest pain and uncontrolled HTN initially 240 systolic which was started on iv nicardipine drip. Patient reports of n/v and chest pain in the substernal area. Patient also has h/o type II diabetes that is not needing medications but controlled by diet. Patient states HTN has been difficult to control and he has been compliant with his medications. Had Dialysis session on Friday 03/23 and due to n/v didn't take home meds for blood pressure. EMS was called and paramedics arrived on the scene and administered Zofran and 3 tablets of Nitroglycerin. Sarah has been on nicardipine drip for BP overnight which kept his BP well controlled. No c/o CP. sob this morning. Patient states he usually goes [place] [facility] because [place] physicians are affiliated there. Review of Systems - Review of Systems Systems not reviewed;Unavailable: Unstable Vital Signs - Constitutional Constitutional: Fatigue - EENT Eyes: As Per HPI Ears: As Per HPI Nose/Mouth/Throat: As Per HPI - Cardiovascular Cardiovascular: As Per HPI, Chest Pain - Respiratory Respiratory: As Per HPI - Gastrointestinal Gastrointestinal: As Per HPI, Nausea - Neurological Neurological: As Per HPI Past Patient History - Past Medical History & Family History Past Medical History?: Yes - Past Social History Smoking Status: Never Smoked Chewing Tobacco Use: No Cigar Use: No - CARDIAC Hx Cardiac Disorders: Yes - PULMONARY Hx Respiratory Disorders: Yes Hx Asthma: Yes Hx Pneumonia: Yes Other/Comment: pleural effussion,pneumothorax - NEUROLOGICAL Hx Neurological Disorder: No - HEENT Hx HEENT Problems: No Other/Comment: dryness around his eyes - RENAL Hx Chronic Kidney Disease: Yes - ENDOCRINE/METABOLIC Hx Endocrine Disorders: Yes Hx Diabetes Mellitus Type 2: Yes - HEMATOLOGICAL/ONCOLOGICAL Hx Blood Disorders: No Hx AIDS: No Hx Human Immunodeficiency Virus (HIV): No - INTEGUMENTARY Hx Dermatological Problems: No - MUSCULOSKELETAL/RHEUMATOLOGICAL Hx Musculoskeletal Disorders: No Hx Falls: No - GASTROINTESTINAL Hx Gastrointestinal Disorders: No - GENITOURINARY/GYNECOLOGICAL Hx Genitourinary Disorders: No - PSYCHIATRIC Hx Psychophysiologic Disorder: No Hx Sexual Abuse: No Hx Substance Use: No - SURGICAL HISTORY Hx Surgeries: No Other/Comment: permacath insertion - ANESTHESIA Hx Anesthesia: Yes Hx Anesthesia Reactions: No Meds Allergies/Adverse Reactions: Allergies Allergy/AdvReac Type Severity Reaction Status Date / Time ibuprofen [From Motrin] Allergy RASH Verified 03/23/18 14:15 shellfish derived Allergy SHORTNESS Verified 03/23/18 14:14 OF BREATH nuts Allergy RASH Uncoded 03/23/18 14:13 salmon Allergy RASH Uncoded 03/23/18 14:15 - Medications Medications: Current Medications Allopurinol (Zyloprim) 100 mg PO DAILY [facility] Last Admin: 03/24/18 08:43 Dose: 100 mg Amlodipine Besylate (Norvasc) 10 mg PO DAILY [facility] Clonidine HCl (Catapres) 0.2 mg PO DAILY [facility] Last Admin: 03/24/18 08:41 Dose: 0.2 mg Ergocalciferol (Drisdol 50,000 Intl Units Cap) 1 cap PO [facility] Famotidine (Pepcid) 20 mg IVP DAILY [facility] Last Admin: 03/24/18 08:51 Dose: 20 mg Labetalol HCl (Trandate) 600 mg PO BID [facility] Last Admin: 03/24/18 08:42 Dose: 600 mg Morphine Sulfate (Morphine) 2 mg IVP Q4 PRN PRN Reason: Pain, moderate (4-7) Morphine Sulfate (Morphine) 4 mg IVP Q4 PRN PRN Reason: Pain, severe (8-10) Nitroglycerin (Nitrostat Sl Tab) 0.4 mg SL Q5M PRN PRN Reason: Pain, moderate (4-7) Ondansetron HCl (Zofran Inj) 4 mg IVP Q4 PRN PRN Reason: Nausea/Vomiting Sevelamer HCl (Renagel) 2,400 mg PO TID [facility] Last Admin: 03/24/18 08:42 Dose: 2,400 mg Physical Exam - Head Exam Head Exam: ATRAUMATIC - Eye Exam Eye Exam: Normal appearance - ENT Exam ENT Exam: Mucous Membranes Moist - Neck Exam Neck exam: Positive for: Full Rom - Respiratory Exam Respiratory Exam: NORMAL BREATHING PATTERN - Cardiovascular Exam Cardiovascular Exam: REGULAR RHYTHM - GI/Abdominal Exam GI & Abdominal Exam: Soft Results - Vital Signs Recent Vital Signs: Last Vital Signs Temp 98.3 F 03/24/18 08:00 Pulse 81 03/24/18 08:41 Resp 25 H 03/24/18 08:00 BP 144/74 03/24/18 08:41 Pulse Ox 93 L 03/24/18 08:00 - Labs Result Diagrams: 03/24/18 06:10 03/24/18 06:10 Labs: Laboratory Results - last 24 hr 03/23/18 03/23/18 03/23/18 14:12 15:16 15:16 WBC 8.1 RBC 3.37 L Hgb 9.2 L Hct 28.6 L MCV 84.8 MCH 27.4 MCHC 32.3 L RDW 17.0 H Plt Count 176 MPV 7.1 L Neut % (Auto) 88.9 H Lymph % (Auto) 4.6 L [place] % (Auto) 3.8 Eos % (Auto) 1.6 Baso % (Auto) 1.1 Neut # (Auto) 7.2 H Lymph # (Auto) 0.4 L [place] # (Auto) 0.3 Eos # (Auto) 0.1 Baso # (Auto) 0.1 Neutrophils % (Manual) 88 H Lymphocytes % (Manual) 6 L Monocytes % (Manual) 5 Basophils % (Manual) 1 Platelet Estimate Normal Hypochromasia (manual) Marked Anisocytosis (manual) Slight PT INR APTT Sodium 137 Potassium 4.1 Chloride 99 Carbon Dioxide 31 H Anion Gap 11 BUN 27 H Creatinine 4.1 H Est GFR ( Amer) 18 Est GFR (Non-Af Amer) 15 POC Glucose (mg/dL) 125 H Random Glucose 133 H Calcium 9.3 Total Bilirubin 1.0 AST 37 ALT 32 Alkaline Phosphatase 117 Troponin I 0.0210 Total Protein 5.8 L Albumin 3.2 L Globulin 2.6 Albumin/Globulin Ratio 1.2 Lipase 161 03/23/18 03/24/18 03/24/18 15:16 00:41 06:10 WBC 7.3 RBC 3.02 L Hgb 8.5 L Hct 25.2 L MCV 83.4 MCH 28.2 MCHC 33.8 RDW 17.0 H Plt Count 175 MPV Neut % (Auto) Lymph % (Auto) [place] % (Auto) Eos % (Auto) Baso % (Auto) Neut # (Auto) Lymph # (Auto) [place] # (Auto) Eos # (Auto) Baso # (Auto) Neutrophils % (Manual) Lymphocytes % (Manual) Monocytes % (Manual) Basophils % (Manual) Platelet Estimate Hypochromasia (manual) Anisocytosis (manual) PT 10.8 INR 1.0 APTT 38.8 H Sodium Potassium Chloride Carbon Dioxide Anion Gap BUN Creatinine Est GFR ( Amer) Est GFR (Non-Af Amer) POC Glucose (mg/dL) Random Glucose Calcium Total Bilirubin AST ALT Alkaline Phosphatase Troponin I 0.0700 Total Protein Albumin Globulin Albumin/Globulin Ratio Lipase 03/24/18 03/24/18 06:10 06:10 WBC RBC Hgb Hct MCV MCH MCHC RDW Plt Count MPV Neut % (Auto) Lymph % (Auto) [place] % (Auto) Eos % (Auto) Baso % (Auto) Neut # (Auto) Lymph # (Auto) [place] # (Auto) Eos # (Auto) Baso # (Auto) Neutrophils % (Manual) Lymphocytes % (Manual) Monocytes % (Manual) Basophils % (Manual) Platelet Estimate Hypochromasia (manual) Anisocytosis (manual) PT INR APTT Sodium 135 Potassium 4.2 Chloride 98 Carbon Dioxide 35 H Anion Gap 6 L BUN 36 H Creatinine 5.0 H Est GFR ( Amer) 15 Est GFR (Non-Af Amer) 12 POC Glucose (mg/dL) 122 H Random Glucose 122 H Calcium 9.1 Total Bilirubin 0.8 AST 40 ALT 30 Alkaline Phosphatase 103 Troponin I 0.1150 Total Protein 5.2 L Albumin 2.8 L Globulin 2.5 Albumin/Globulin Ratio 1.1 Lipase Assessment & Plan - Assessment and Plan (Free Text) Assessment: Plan: 1) Hypertensive Urgency - pt with chest pain, n/v, and blood pressures consistantly 240's systolic, now better on IV nicardipine, currently only on 2.5 mg/h, will add Po norvasc 10 mg and will DC nicardipine, while watching BP in ICU also on PO labetolol - trops and ekg x 3 to rule out ACS - ct head negative - 2) ESRD on Hd- creatinie 4.1 - continue with iv drip for now - last dialysis 2 days back Will consult nephrology 3) Chest pain- rule out ACS thus far negative x 2 - serial ekg and trops 4) Dm- not on any home meds - serial accuchecks ac and Hs - not on any insulin due to poor oral intake 5-DVT prophlaxis L s/q heparin.
--- NOTE | 2018-03-24 10:26 | CT ---
Date of service: 03/24/2018 PROCEDURE: CT HEAD WITHOUT CONTRAST. HISTORY: Rule out CVA COMPARISON: None available. TECHNIQUE: Axial computed tomography images were obtained through the head/brain without intravenous contrast. Radiation dose: Total exam DLP = 983.61 mGy-cm. This CT exam was performed using one or more of the following dose reduction techniques: Automated exposure control, adjustment of the mA and/or kV according to patient size, and/or use of iterative reconstruction technique. FINDINGS: HEMORRHAGE: No intracranial hemorrhage. BRAIN: Mild confluent chronic periventricular white matter ischemic changes seen extending peripherally into the deep white matter both cerebral hemispheres. No obvious parenchymal nor extra-axial mass or collection identified on this noncontrast exam. Mild generalized volume loss. Vascular calcifications both carotid siphons and vertebral arteries VENTRICLES: No obstructive hydrocephalus. CALVARIUM: Calvarium intact. Nonspecific infiltration changes seen within the subcutaneous tissues of the scalp. There also appears to be some localized scarring left posterior parieto-occipital and possibly in the right suboccipital regions. PARANASAL SINUSES: Unremarkable as visualized. No significant inflammatory changes. MASTOID AIR CELLS: Unremarkable as visualized. No inflammatory changes. OTHER FINDINGS: None. IMPRESSION: Normal CT of the Head.
--- NOTE | 2018-03-24 10:35 | CP.PCM.CON ---
History of Present Illness - History of Present Illness History of Present Illness: This 58-year-old man came to the emergency room after the emergency outside medical sales representative were called for severe chest pain nausea and vomiting. The patient indicates that the chest pain was aggravated by inspiration. He has been found to be a diabetic for approximately 4 years and also hypertensive. He has taken his medications on a regular basis and has gradually developed worsening renal function and has started hemodialysis recently. He has never experienced effort related chest pain or myocardial infarction or symptoms of congestive cardiac failure. He has had pedal edema off and on for a couple of years. On further questioning patient does admit that he probably had a salty meal couple of days back. Physical examination shows an anxious middle aged -[place] male who is able to lie virtually flat in bed and breathes comfortably at 16-18 breaths were minute and can carry on a conversation. His heart rate was 70 bpm regular and his blood pressure in the right upper extremity was 134/74 mmHg. His jugular venous pressure was not elevated and there was minimal eating edema over both lower extremities with evidence off wrinkling of skin indicating a significant amount of pedal edema existed before. His pedal pulses could not be adequately felt because of the thickening of the skin. The apex was not palpable the first and second heart sounds were normal there was no murmur or gallop there were no rales. The hemodialysis catheter was in place on the right side. His electro-cardial gram showed sinus rhythm with widespread ST-T changes indicating of left ventricular hypertrophy. 3 sets of cardiac enzymes were negative for any evidence of myocyte injury. There was evidence of normocytic normochromic anemia typical off chronic kidney disease. His electrolytes were essentially normal. Impression: Atypical chest pain with no evidence of acute coronary syndrome. Chronic kidney disease with recently started hemodialysis. Hypertension diabetes mellitus. The patient's blood pressure has been brought under control using multiple medications which include an ARB as well as a beta abilio and alpha sympathetic abilio and calcium channel abilio. He may be allowed to return home to continue his management as an outpatient by his medical management team. Past Patient History - Past Medical History & Family History Past Medical History?: Yes - Past Social History Smoking Status: Never Smoked Chewing Tobacco Use: No Cigar Use: No - CARDIAC Hx Cardiac Disorders: Yes - PULMONARY Hx Respiratory Disorders: Yes Hx Asthma: Yes Hx Pneumonia: Yes Other/Comment: pleural effussion,pneumothorax - NEUROLOGICAL Hx Neurological Disorder: No - HEENT Hx HEENT Problems: No Other/Comment: dryness around his eyes - RENAL Hx Chronic Kidney Disease: Yes - ENDOCRINE/METABOLIC Hx Endocrine Disorders: Yes Hx Diabetes Mellitus Type 2: Yes - HEMATOLOGICAL/ONCOLOGICAL Hx Blood Disorders: No Hx AIDS: No Hx Human Immunodeficiency Virus (HIV): No - INTEGUMENTARY Hx Dermatological Problems: No - MUSCULOSKELETAL/RHEUMATOLOGICAL Hx Musculoskeletal Disorders: No Hx Falls: No - GASTROINTESTINAL Hx Gastrointestinal Disorders: No - GENITOURINARY/GYNECOLOGICAL Hx Genitourinary Disorders: No - PSYCHIATRIC Hx Psychophysiologic Disorder: No Hx Sexual Abuse: No Hx Substance Use: No - SURGICAL HISTORY Hx Surgeries: No Other/Comment: permacath insertion - ANESTHESIA Hx Anesthesia: Yes Hx Anesthesia Reactions: No Meds Allergies/Adverse Reactions: Allergies Allergy/AdvReac Type Severity Reaction Status Date / Time ibuprofen [From Motrin] Allergy RASH Verified 03/23/18 14:15 shellfish derived Allergy SHORTNESS Verified 03/23/18 14:14 OF BREATH nuts Allergy RASH Uncoded 03/23/18 14:13 salmon Allergy RASH Uncoded 03/23/18 14:15 - Medications Medications: Current Medications Allopurinol (Zyloprim) 100 mg PO DAILY [facility] Last Admin: 03/24/18 08:43 Dose: 100 mg Amlodipine Besylate (Norvasc) 10 mg PO DAILY [facility] Ergocalciferol (Drisdol 50,000 Intl Units Cap) 1 cap PO F [facility] Famotidine (Pepcid) 20 mg IVP DAILY [facility] Last Admin: 03/24/18 08:51 Dose: 20 mg Labetalol HCl (Trandate) 600 mg PO BID [facility] Last Admin: 03/24/18 08:42 Dose: 600 mg Losartan Potassium (Cozaar) 50 mg PO QPM [facility] Morphine Sulfate (Morphine) 2 mg IVP Q4 PRN PRN Reason: Pain, moderate (4-7) Morphine Sulfate (Morphine) 4 mg IVP Q4 PRN PRN Reason: Pain, severe (8-10) Nitroglycerin (Nitrostat Sl Tab) 0.4 mg SL Q5M PRN PRN Reason: Pain, moderate (4-7) Ondansetron HCl (Zofran Inj) 4 mg IVP Q4 PRN PRN Reason: Nausea/Vomiting Sevelamer HCl (Renagel) 2,400 mg PO TID [facility] Last Admin: 03/24/18 08:42 Dose: 2,400 mg Vitamin B Complex/Vit C/Folic Acid (Nephro-Kianna) 1 tab PO DAILY [facility] Results - Vital Signs Recent Vital Signs: Last Vital Signs Temp 98.3 F 03/24/18 08:00 Pulse 81 03/24/18 08:41 Resp 25 H 03/24/18 08:00 BP 144/74 03/24/18 08:41 Pulse Ox 93 L 03/24/18 08:00 - Labs Result Diagrams: 03/24/18 06:10 03/24/18 06:10 Labs: Laboratory Results - last 24 hr 03/23/18 03/23/18 03/23/18 14:12 15:16 15:16 WBC 8.1 RBC 3.37 L Hgb 9.2 L Hct 28.6 L MCV 84.8 MCH 27.4 MCHC 32.3 L RDW 17.0 H Plt Count 176 MPV 7.1 L Neut % (Auto) 88.9 H Lymph % (Auto) 4.6 L [place] % (Auto) 3.8 Eos % (Auto) 1.6 Baso % (Auto) 1.1 Neut # (Auto) 7.2 H Lymph # (Auto) 0.4 L [place] # (Auto) 0.3 Eos # (Auto) 0.1 Baso # (Auto) 0.1 Neutrophils % (Manual) 88 H Lymphocytes % (Manual) 6 L Monocytes % (Manual) 5 Basophils % (Manual) 1 Platelet Estimate Normal Hypochromasia (manual) Marked Anisocytosis (manual) Slight PT INR APTT Sodium 137 Potassium 4.1 Chloride 99 Carbon Dioxide 31 H Anion Gap 11 BUN 27 H Creatinine 4.1 H Est GFR ( Amer) 18 Est GFR (Non-Af Amer) 15 POC Glucose (mg/dL) 125 H Random Glucose 133 H Calcium 9.3 Total Bilirubin 1.0 AST 37 ALT 32 Alkaline Phosphatase 117 Troponin I 0.0210 Total Protein 5.8 L Albumin 3.2 L Globulin 2.6 Albumin/Globulin Ratio 1.2 Lipase 161 03/23/18 03/24/18 03/24/18 15:16 00:41 06:10 WBC 7.3 RBC 3.02 L Hgb 8.5 L Hct 25.2 L MCV 83.4 MCH 28.2 MCHC 33.8 RDW 17.0 H Plt Count 175 MPV Neut % (Auto) Lymph % (Auto) [place] % (Auto) Eos % (Auto) Baso % (Auto) Neut # (Auto) Lymph # (Auto) [place] # (Auto) Eos # (Auto) Baso # (Auto) Neutrophils % (Manual) Lymphocytes % (Manual) Monocytes % (Manual) Basophils % (Manual) Platelet Estimate Hypochromasia (manual) Anisocytosis (manual) PT 10.8 INR 1.0 APTT 38.8 H Sodium Potassium Chloride Carbon Dioxide Anion Gap BUN Creatinine Est GFR ( Amer) Est GFR (Non-Af Amer) POC Glucose (mg/dL) Random Glucose Calcium Total Bilirubin AST ALT Alkaline Phosphatase Troponin I 0.0700 Total Protein Albumin Globulin Albumin/Globulin Ratio Lipase 03/24/18 03/24/18 06:10 06:10 WBC RBC Hgb Hct MCV MCH MCHC RDW Plt Count MPV Neut % (Auto) Lymph % (Auto) [place] % (Auto) Eos % (Auto) Baso % (Auto) Neut # (Auto) Lymph # (Auto) [place] # (Auto) Eos # (Auto) Baso # (Auto) Neutrophils % (Manual) Lymphocytes % (Manual) Monocytes % (Manual) Basophils % (Manual) Platelet Estimate Hypochromasia (manual) Anisocytosis (manual) PT INR APTT Sodium 135 Potassium 4.2 Chloride 98 Carbon Dioxide 35 H Anion Gap 6 L BUN 36 H Creatinine 5.0 H Est GFR ( Amer) 15 Est GFR (Non-Af Amer) 12 POC Glucose (mg/dL) 122 H Random Glucose 122 H Calcium 9.1 Total Bilirubin 0.8 AST 40 ALT 30 Alkaline Phosphatase 103 Troponin I 0.1150 Total Protein 5.2 L Albumin 2.8 L Globulin 2.5 Albumin/Globulin Ratio 1.1 Lipase
[2018-03-24] MEDS: Multivitamin Vitamin B Complex (Nephro-Vite) Tab PO SCH (10:46)
--- NOTE | 2018-03-24 13:02 | CP.PCM.CON ---
History of Present Illness - History of Present Illness History of Present Illness: Nephrology Consultation Note: Assessment: critical HTN emergency fluid overload with b/l pleural and pericardial effusion sclerotic lesion in vertebra Diabetic chronic Kidney Disease (E11.22) Hypertensive Chronic Kidney Disease (I12.0) End stage renal disease (N18.6) dependence on hemodialysis (Z99.2) (MWF) via PC Anemia (D64.9), Hyperphosphatemia (E83.39), Secondary Hyperparathyroidism (E21.1 ), HTN (I12.0) Plan: No acute need for dialysis today. Will plan for dialysis tomorrow. Continue with Nephrovite 1 tab/day. PRBC as needed for anemia. Not on AARON with dialysis as BP uncontrolled. check TSAT/ferritin Continue with phos binders, last phos level: please check with next labs with Vit D and PTH BP control with meds as ordered. Patient not on RAAS abilio hence will add losartan. dc clonidine to avoid risk of withdrawal and rebound HTN. sec HTN work up as ordered. started lasix 80 mg on non HD days Glycemic control, Dialysis consistent diet Further work up/management as per primary team Dose meds/antibiotics (if needed) for ESRD status. Avoid fleets enema/magnesium based laxatives. cardiology following consider further work up for sclerotic lesions in vertebra will check SHADE/DNA ab/Hep B/C and HIV serology Thanks for allowing me to participate in care of your patient. Will follow patient with you. Please call if any Qs. had d/w team Dr Aakash Patton Office: [phone] Chief Complaint;nasuea/vomitting reason for consult; ESRD HPI: Pt is a 58 M with hx of ESRD on hemodialysis (MWF) via PC for last 2 weeks @ [facility] with Dr Gastelum, last dialysis Fri, chronic anemia, hyperphosphatemia, secondary hyperparathyroidism, Diabetes Mellitus, hypertension (mostly uncontrolled), pleural effusions presented with complaints of recurrent nasuea and vomitting with associated chest pain x 1 day, found to have HTN emergency and admtted ti ICU. started nicardipine drip and now BP better. pt feels better. GI symptoms and chest pain better. denies SOB Renal consult requested for ESRD management. ROS: Cardiovascular: No chest pain. Pulmonary: No shortness of breath Gastrointestinal: at present: denies abdominal pain No nausea. No vomiting. Genitourinary: No pain while urinating. Denies blood in urine. All other negative except as mentioned in HPI Physical Examination: General Appearance: Comfortable, in no acute respiratory distress, co-operative . Vitals reviewed and noted as below Head; Atraumatic, normocephalic ENT: no ulcers no thrush. Tongue is midline. Oropharynx: no rash or ulcers. EYES: Pupils are equal, round and reactive to light accommodation. Eye muscles and extraocular movement intact. Sclera is anicteric. Neck; supple no lymphadenopathy, no thyromegaly or bruit Lungs: Normal respiratory rate/effort. Breath sounds bilateral decreased at Rt base Heart: Normal rate. s1s2 normal. No rub or gallop. Extremities: 2+ edema. No varicose veins. chronic venous stasis changes + Neurological: Patient is alert, awake and oriented to person, place and time. No focal deficit. Strength bilateral appropriate and equal Skin: Warm and dry. Normal turgor. No rash. Palpitation: Normal elasticity for age Abdomen: Abdomen is soft. Bowel sounds +. There is no abdominal tenderness, no guarding/rigidity or organomegaly Psych: normal insight and normal affect/mood MSK: no joint tenderness or swelling. Digits and nails normal, no deformity : kidney or bladder not palpable Access: PC Labs/imaging reviewed. Past medical history, past surgical history, family history, social history, allergy reviewed and noted as below Family Hx: no hx of CKD. Non contributory Past Patient History - Past Medical History & Family History Past Medical History?: Yes - Past Social History Smoking Status: Never Smoked Chewing Tobacco Use: No Cigar Use: No - CARDIAC Hx Cardiac Disorders: Yes - PULMONARY Hx Respiratory Disorders: Yes Hx Asthma: Yes Hx Pneumonia: Yes Other/Comment: pleural effussion,pneumothorax - NEUROLOGICAL Hx Neurological Disorder: No - HEENT Hx HEENT Problems: No Other/Comment: dryness around his eyes - RENAL Hx Chronic Kidney Disease: Yes - ENDOCRINE/METABOLIC Hx Endocrine Disorders: Yes Hx Diabetes Mellitus Type 2: Yes - HEMATOLOGICAL/ONCOLOGICAL Hx Blood Disorders: No Hx AIDS: No Hx Human Immunodeficiency Virus (HIV): No - INTEGUMENTARY Hx Dermatological Problems: No - MUSCULOSKELETAL/RHEUMATOLOGICAL Hx Musculoskeletal Disorders: No Hx Falls: No - GASTROINTESTINAL Hx Gastrointestinal Disorders: No - GENITOURINARY/GYNECOLOGICAL Hx Genitourinary Disorders: No - PSYCHIATRIC Hx Psychophysiologic Disorder: No Hx Sexual Abuse: No Hx Substance Use: No - SURGICAL HISTORY Hx Surgeries: No Other/Comment: permacath insertion - ANESTHESIA Hx Anesthesia: Yes Hx Anesthesia Reactions: No Meds Allergies/Adverse Reactions: Allergies Allergy/AdvReac Type Severity Reaction Status Date / Time ibuprofen [From Motrin] Allergy RASH Verified 03/23/18 14:15 shellfish derived Allergy SHORTNESS Verified 03/23/18 14:14 OF BREATH nuts Allergy RASH Uncoded 03/23/18 14:13 salmon Allergy RASH Uncoded 03/23/18 14:15 - Medications Medications: Current Medications Allopurinol (Zyloprim) 100 mg PO DAILY [facility] Last Admin: 03/24/18 08:43 Dose: 100 mg Amlodipine Besylate (Norvasc) 10 mg PO DAILY [facility] Last Admin: 03/24/18 10:47 Dose: 10 mg Ergocalciferol (Drisdol 50,000 Intl Units Cap) 1 cap [place] [facility] [place] Famotidine (Pepcid) 20 mg IVP DAILY [facility] Last Admin: 03/24/18 08:51 Dose: 20 mg Labetalol HCl (Trandate) 600 mg PO BID [facility] Last Admin: 03/24/18 08:42 Dose: 600 mg Losartan Potassium (Cozaar) 50 mg PO QPM [facility] Morphine Sulfate (Morphine) 2 mg IVP Q4 PRN PRN Reason: Pain, moderate (4-7) Morphine Sulfate (Morphine) 4 mg IVP Q4 PRN PRN Reason: Pain, severe (8-10) Nitroglycerin (Nitrostat Sl Tab) 0.4 mg SL Q5M PRN PRN Reason: Pain, moderate (4-7) Ondansetron HCl (Zofran Inj) 4 mg IVP Q4 PRN PRN Reason: Nausea/Vomiting Sevelamer HCl (Renagel) 2,400 mg PO TID [facility] Last Admin: 03/24/18 08:42 Dose: 2,400 mg Vitamin B Complex/Vit C/Folic Acid (Nephro-Kianna) 1 tab PO DAILY [facility] Last Admin: 03/24/18 10:46 Dose: 1 tab Results - Vital Signs Recent Vital Signs: Last Vital Signs Temp 98.3 F 03/24/18 08:00 Pulse 70 03/24/18 10:47 Resp 25 H 03/24/18 08:00 BP 136/77 03/24/18 10:47 Pulse Ox 93 L 03/24/18 08:00 - Labs Result Diagrams: 03/24/18 06:10 03/24/18 06:10 Labs: Laboratory Results - last 24 hr 03/23/18 03/23/18 03/23/18 14:12 15:16 15:16 WBC 8.1 RBC 3.37 L Hgb 9.2 L Hct 28.6 L MCV 84.8 MCH 27.4 MCHC 32.3 L RDW 17.0 H Plt Count 176 MPV 7.1 L Neut % (Auto) 88.9 H Lymph % (Auto) 4.6 L [place] % (Auto) 3.8 Eos % (Auto) 1.6 Baso % (Auto) 1.1 Neut # (Auto) 7.2 H Lymph # (Auto) 0.4 L [place] # (Auto) 0.3 Eos # (Auto) 0.1 Baso # (Auto) 0.1 Neutrophils % (Manual) 88 H Lymphocytes % (Manual) 6 L Monocytes % (Manual) 5 Basophils % (Manual) 1 Platelet Estimate Normal Hypochromasia (manual) Marked Anisocytosis (manual) Slight PT INR APTT Sodium 137 Potassium 4.1 Chloride 99 Carbon Dioxide 31 H Anion Gap 11 BUN 27 H Creatinine 4.1 H Est GFR ( Amer) 18 Est GFR (Non-Af Amer) 15 POC Glucose (mg/dL) 125 H Random Glucose 133 H Calcium 9.3 Total Bilirubin 1.0 AST 37 ALT 32 Alkaline Phosphatase 117 Troponin I 0.0210 Total Protein 5.8 L Albumin 3.2 L Globulin 2.6 Albumin/Globulin Ratio 1.2 Lipase 161 03/23/18 03/24/18 03/24/18 15:16 00:41 06:10 WBC 7.3 RBC 3.02 L Hgb 8.5 L Hct 25.2 L MCV 83.4 MCH 28.2 MCHC 33.8 RDW 17.0 H Plt Count 175 MPV Neut % (Auto) Lymph % (Auto) [place] % (Auto) Eos % (Auto) Baso % (Auto) Neut # (Auto) Lymph # (Auto) [place] # (Auto) Eos # (Auto) Baso # (Auto) Neutrophils % (Manual) Lymphocytes % (Manual) Monocytes % (Manual) Basophils % (Manual) Platelet Estimate Hypochromasia (manual) Anisocytosis (manual) PT 10.8 INR 1.0 APTT 38.8 H Sodium Potassium Chloride Carbon Dioxide Anion Gap BUN Creatinine Est GFR ( Amer) Est GFR (Non-Af Amer) POC Glucose (mg/dL) Random Glucose Calcium Total Bilirubin AST ALT Alkaline Phosphatase Troponin I 0.0700 Total Protein Albumin Globulin Albumin/Globulin Ratio Lipase 03/24/18 03/24/18 03/24/18 06:10 06:10 10:59 WBC RBC Hgb Hct MCV MCH MCHC RDW Plt Count MPV Neut % (Auto) Lymph % (Auto) [place] % (Auto) Eos % (Auto) Baso % (Auto) Neut # (Auto) Lymph # (Auto) [place] # (Auto) Eos # (Auto) Baso # (Auto) Neutrophils % (Manual) Lymphocytes % (Manual) Monocytes % (Manual) Basophils % (Manual) Platelet Estimate Hypochromasia (manual) Anisocytosis (manual) PT INR APTT Sodium 135 Potassium 4.2 Chloride 98 Carbon Dioxide 35 H Anion Gap 6 L BUN 36 H Creatinine 5.0 H Est GFR ( Amer) 15 Est GFR (Non-Af Amer) 12 POC Glucose (mg/dL) 122 H 104 Random Glucose 122 H Calcium 9.1 Total Bilirubin 0.8 AST 40 ALT 30 Alkaline Phosphatase 103 Troponin I 0.1150 Total Protein 5.2 L Albumin 2.8 L Globulin 2.5 Albumin/Globulin Ratio 1.1 Lipase
[2018-03-24 14:41] LABS: BASO # 0.1 K/uL (0.0-0.2); BASO % 1.8 % (0.0-2.0); EOS # 0.2 K/uL (0.0-0.7); EOS % 2.4 % (0.0-4.0); LYMPH # 0.8 K/uL (1.0-4.3); LYMPH % 11.5 % (20.0-40.0); MEAN CELL VOLUME 84.6 fl (80.0-94.0); MEAN CORPUSCULAR HEMOGLOBIN 27.7 pg (27.0-31.0); MEAN CORPUSCULAR HGB CONC 32.8 g/dL (33.0-37.0); MEAN PLATELET VOLUME 6.9 fl (7.2-11.7); MONO # 0.5 K/uL (0.0-0.8); MONO % 7.7 % (0.0-10.0); NEUT # 5.1 K/uL (1.8-7.0); NEUT % 76.6 % (50.0-75.0); RBC 3.24 Mil/uL (4.40-5.90); RED CELL DISTRIBUTION WIDTH 17.6 % (11.5-14.5); WHITE BLOOD COUNT 6.7 K/uL (4.8-10.8)
[2018-03-24 14:45] LABS: IRON 47 ug/dL (49-181)
[2018-03-24 14:55] LABS: % IRON SATURATION 20 % (20-55); TOTAL IRON BINDING CAPACITY 238 ug/dL (250-450)
[2018-03-25] MEDS ORDERED: Nicardipine 20 MG/200 ML 20 MG/200 ML BAG IV ONE (03:25)
[2018-03-25 06:47] LABS: MEAN CORPUSCULAR HEMOGLOBIN 27.8 pg (27.0-31.0); MEAN CORPUSCULAR HGB CONC 32.7 g/dL (33.0-37.0); RBC 3.23 Mil/uL (4.40-5.90); RED CELL DISTRIBUTION WIDTH 17.3 % (11.5-14.5); WHITE BLOOD COUNT 5.9 K/uL (4.8-10.8)
[2018-03-25 07:00] LABS: ALBUMIN 2.6 g/dL (3.5-5.0); CALCIUM 8.6 mg/dL (8.4-10.2)
--- NOTE | 2018-03-25 08:01 | CP.CCUPN ---
CCU Subjective - Physician Review Events Since Last Encounter (Free Text): 03/25/18 16:39 The patient was Seen/interviewed and examined by me at the bedside during ICU round, Medical records reviewed and Management issues were discussed and formulated with the house staff. Events reviewed 58 Years old Male with PMHx of HTN, Type II DM (controlled by diet) and End Stage Kidney Disease and was started dialysis 2-3 weeks back. Who presented to the Emergency department with chief complaint of substernal area chest pain and uncontrolled HTN initially 240 systolic which was started on iv nicardipine drip. He was admitted to ICU with CP and very high BP. Patient states didn't take home meds for blood pressure. Sarah has been on nicardipine drip for BP overnight which kept his BP well controlled, nicardipine drip was discontinued 6:30 this morning This morning he feels well and is hemodynamically stable, denies any chest pain or SOB Cardiac enzymes x3 negative Resumed home medications Scheduled for HD today CCU Objective - Vital Signs / Intake & Output Vital Signs (Last 4 hours): Vital Signs Pulse Resp BP Pulse Ox 03/25/18 06:00 76 16 123/73 95 03/25/18 05:00 72 12 186/92 H 96 Intake and Output (Last 8hrs): Intake & Output 03/24/18 03/25/18 03/25/18 22:59 06:59 14:59 Intake Total 330 10 Output Total 250 Balance 80 10 Intake: IV 10 Oral 330 Output: Urine 250 Urine, Voided 250 - Physical Exam Head: Positive for: Atraumatic, Normocephalic Pupils: Positive for: PERRL. Negative for: Sluggish, Non-Reactive Extroacular Muscles: Positive for: EOMI Conjunctiva: Positive for: Normal. Negative for: Injected, Icteric Mouth: Positive for: Moist Mucous Membranes Pharnyx: Positive for: Normal. Negative for: ERYTHEMA, EXUDATE Neck: Positive for: Normal Range of Motion, Trachea Midline. Negative for: Meningeal Signs, MIDLINE TENDERNESS, Paraspinal Tenderness, JVD, Lymphadenopathy , Bruit, Other Respiratory/Chest: Positive for: Clear to Auscultation, Good Air Exchange. Negative for: Respiratory Distress, Accessory Muscle Use, Wheezes, Rales, Retracting, Rhonchi Cardiovascular: Positive for: Regular Rate and Rhythm, Normal S1, S2, Peripheal Pulses Present. Negative for: Murmurs, Tachycardic, Bradycardic Abdomen: Positive for: Normal Bowel Sounds. Negative for: Tenderness, Distention Back: Negative for: CVA Tenderness Neurological: Positive for: GCS=15, CN II-XII Intact, Speech Normal, Motor Func Grossly Intact, Normal Sensory Function - Medications Active Medications: Active Medications Generic Name Dose Route Start Last Admin Trade Name Freq PRN Reason Stop Dose Admin Allopurinol 100 mg 03/24/18 09:00 03/24/18 08:43 Zyloprim PO 100 mg DAILY [facility] Administration Amlodipine Besylate 10 mg 03/24/18 09:45 03/24/18 10:47 Norvasc PO 10 mg DAILY [facility] Administration Ergocalciferol 1 cap 03/25/18 09:00 Drisdol 50,000 Intl Units Cap PO MWF [facility] Famotidine 20 mg 03/24/18 09:00 03/24/18 08:51 Pepcid IVP 20 mg DAILY [facility] Administration Furosemide 80 mg 03/24/18 13:00 03/24/18 16:55 Lasix PO Not Given TTS [facility] Labetalol HCl 600 mg 03/24/18 09:00 03/24/18 17:27 Trandate PO 600 mg BID [facility] Administration Losartan Potassium 50 mg 03/24/18 18:00 03/24/18 17:24 Cozaar PO 50 mg QPM [facility] Administration Morphine Sulfate 2 mg 03/24/18 00:28 Morphine IVP Q4 PRN Pain, moderate (4-7) Morphine Sulfate 4 mg 03/24/18 00:35 Morphine IVP Q4 PRN Pain, severe (8-10) Nitroglycerin 0.4 mg 03/24/18 00:30 Nitrostat Sl Tab SL Q5M PRN Pain, moderate (4-7) Ondansetron HCl 4 mg 03/24/18 00:25 Zofran Inj IVP Q4 PRN Nausea/Vomiting Sevelamer HCl 2,400 mg 03/24/18 09:00 03/24/18 16:56 Renagel PO 2,400 mg TID [facility] Administration Vitamin B Complex/Vit C/Folic Acid 1 tab 03/24/18 10:15 03/24/18 10:46 Nephro-Kianna PO 1 tab DAILY [facility] Administration - Patient Studies Lab Studies: Lab Studies 03/25/18 03/25/18 03/25/18 Range/Units 06:42 06:42 05:57 WBC 5.9 (4.8-10.8) K/uL RBC 3.23 L (4.40-5.90) Mil/uL Hgb 9.0 L (12.0-18.0) g/dL Hct 27.4 L (35.0-51.0) % MCV 85.0 (80.0-94.0) fl MCH 27.8 (27.0-31.0) pg MCHC 32.7 L (33.0-37.0) g/dL RDW 17.3 H (11.5-14.5) % Plt Count 188 (130-400) K/uL MPV (7.2-11.7) fl Neut % (Auto) (50.0-75.0) % Lymph % (Auto) (20.0-40.0) % [place] % (Auto) (0.0-10.0) % Eos % (Auto) (0.0-4.0) % Baso % (Auto) (0.0-2.0) % Neut # (Auto) (1.8-7.0) K/uL Lymph # (Auto) (1.0-4.3) K/uL [place] # (Auto) (0.0-0.8) K/uL Eos # (Auto) (0.0-0.7) K/uL Baso # (Auto) (0.0-0.2) K/uL Sodium 135 (132-148) mmol/l Potassium 3.8 (3.6-5.0) MMOL/L Chloride 98 (98-107) mmol/L Carbon Dioxide 33 H (22-30) mmol/L Anion Gap 8 L (10-20) BUN 45 H (9-20) mg/dl Creatinine 6.2 H (0.8-1.5) mg/dl Est GFR ( Amer) 11 Est GFR (Non-Af Amer) 9 POC Glucose (mg/dL) 82 (65-110) mg/dL Random Glucose 83 (75-110) mg/dL Calcium 8.6 (8.4-10.2) mg/dL Phosphorus 4.1 (2.5-4.5) mg/dl Iron (49-181) ug/dL TIBC (250-450) ug/dL % Saturation (20-55) % Ferritin (17.9-464) ng/Ml Total Bilirubin 0.8 (0.2-1.3) mg/dl AST 34 (17-59) U/L ALT 31 (21-72) U/L Alkaline Phosphatase 100 (38-126) U/L Total Protein 5.2 L (6.3-8.2) G/DL Albumin 2.6 L (3.5-5.0) g/dL Globulin 2.6 (2.2-3.9) gm/dL Albumin/Globulin Ratio 1.0 (1.0-2.1) Triglycerides 97 (0-149) mg/DL Cholesterol 150 (0-199) mg/dL LDL Cholesterol Direct 73 (0-129) mg/dL HDL Cholesterol 43 (30-70) MG/DL Ur Random Creatinine Urine Total Volume Microalb/Creat Ratio (<30) 03/24/18 03/24/18 03/24/18 Range/Units 21:41 16:01 13:41 WBC 6.7 (4.8-10.8) K/uL RBC 3.24 L (4.40-5.90) Mil/uL Hgb 9.0 L (12.0-18.0) g/dL Hct 27.4 L (35.0-51.0) % MCV 84.6 (80.0-94.0) fl MCH 27.7 (27.0-31.0) pg MCHC 32.8 L (33.0-37.0) g/dL RDW 17.6 H (11.5-14.5) % Plt Count 177 (130-400) K/uL MPV 6.9 L (7.2-11.7) fl Neut % (Auto) 76.6 H (50.0-75.0) % Lymph % (Auto) 11.5 L (20.0-40.0) % [place] % (Auto) 7.7 (0.0-10.0) % Eos % (Auto) 2.4 (0.0-4.0) % Baso % (Auto) 1.8 (0.0-2.0) % Neut # (Auto) 5.1 (1.8-7.0) K/uL Lymph # (Auto) 0.8 L (1.0-4.3) K/uL [place] # (Auto) 0.5 (0.0-0.8) K/uL Eos # (Auto) 0.2 (0.0-0.7) K/uL Baso # (Auto) 0.1 (0.0-0.2) K/uL Sodium (132-148) mmol/l Potassium (3.6-5.0) MMOL/L Chloride (98-107) mmol/L Carbon Dioxide (22-30) mmol/L Anion Gap (10-20) BUN (9-20) mg/dl Creatinine (0.8-1.5) mg/dl Est GFR ( Amer) Est GFR (Non-Af Amer) POC Glucose (mg/dL) 91 120 H (65-110) mg/dL Random Glucose (75-110) mg/dL Calcium (8.4-10.2) mg/dL Phosphorus (2.5-4.5) mg/dl Iron (49-181) ug/dL TIBC (250-450) ug/dL % Saturation (20-55) % Ferritin (17.9-464) ng/Ml Total Bilirubin (0.2-1.3) mg/dl AST (17-59) U/L ALT (21-72) U/L Alkaline Phosphatase (38-126) U/L Total Protein (6.3-8.2) G/DL Albumin (3.5-5.0) g/dL Globulin (2.2-3.9) gm/dL Albumin/Globulin Ratio (1.0-2.1) Triglycerides (0-149) mg/DL Cholesterol (0-199) mg/dL LDL Cholesterol Direct (0-129) mg/dL HDL Cholesterol (30-70) MG/DL Ur Random Creatinine Urine Total Volume Microalb/Creat Ratio (<30) 03/24/18 03/24/18 03/24/18 Range/Units 13:41 13:41 13:41 WBC (4.8-10.8) K/uL RBC (4.40-5.90) Mil/uL Hgb (12.0-18.0) g/dL Hct (35.0-51.0) % MCV (80.0-94.0) fl MCH (27.0-31.0) pg MCHC (33.0-37.0) g/dL RDW (11.5-14.5) % Plt Count (130-400) K/uL MPV (7.2-11.7) fl Neut % (Auto) (50.0-75.0) % Lymph % (Auto) (20.0-40.0) % [place] % (Auto) (0.0-10.0) % Eos % (Auto) (0.0-4.0) % Baso % (Auto) (0.0-2.0) % Neut # (Auto) (1.8-7.0) K/uL Lymph # (Auto) (1.0-4.3) K/uL [place] # (Auto) (0.0-0.8) K/uL Eos # (Auto) (0.0-0.7) K/uL Baso # (Auto) (0.0-0.2) K/uL Sodium (132-148) mmol/l Potassium (3.6-5.0) MMOL/L Chloride (98-107) mmol/L Carbon Dioxide (22-30) mmol/L Anion Gap (10-20) BUN (9-20) mg/dl Creatinine (0.8-1.5) mg/dl Est GFR ( Amer) Est GFR (Non-Af Amer) POC Glucose (mg/dL) (65-110) mg/dL Random Glucose (75-110) mg/dL Calcium (8.4-10.2) mg/dL Phosphorus (2.5-4.5) mg/dl Iron 47 L (49-181) ug/dL TIBC 238 L (250-450) ug/dL % Saturation 20 (20-55) % Ferritin 421.0 (17.9-464) ng/Ml Total Bilirubin (0.2-1.3) mg/dl AST (17-59) U/L ALT (21-72) U/L Alkaline Phosphatase (38-126) U/L Total Protein (6.3-8.2) G/DL Albumin (3.5-5.0) g/dL Globulin (2.2-3.9) gm/dL Albumin/Globulin Ratio (1.0-2.1) Triglycerides (0-149) mg/DL Cholesterol (0-199) mg/dL LDL Cholesterol Direct (0-129) mg/dL HDL Cholesterol (30-70) MG/DL Ur Random Creatinine TNP Urine Total Volume TNP Microalb/Creat Ratio (<30) 03/24/18 03/24/18 Range/Units 10:59 06:10 WBC (4.8-10.8) K/uL RBC (4.40-5.90) Mil/uL Hgb (12.0-18.0) g/dL Hct (35.0-51.0) % MCV (80.0-94.0) fl MCH (27.0-31.0) pg MCHC (33.0-37.0) g/dL RDW (11.5-14.5) % Plt Count (130-400) K/uL MPV (7.2-11.7) fl Neut % (Auto) (50.0-75.0) % Lymph % (Auto) (20.0-40.0) % [place] % (Auto) (0.0-10.0) % Eos % (Auto) (0.0-4.0) % Baso % (Auto) (0.0-2.0) % Neut # (Auto) (1.8-7.0) K/uL Lymph # (Auto) (1.0-4.3) K/uL [place] # (Auto) (0.0-0.8) K/uL Eos # (Auto) (0.0-0.7) K/uL Baso # (Auto) (0.0-0.2) K/uL Sodium 135 (132-148) mmol/l Potassium 4.2 (3.6-5.0) MMOL/L Chloride 98 (98-107) mmol/L Carbon Dioxide 35 H (22-30) mmol/L Anion Gap 6 L (10-20) BUN 36 H (9-20) mg/dl Creatinine 5.0 H (0.8-1.5) mg/dl Est GFR ( Amer) 15 Est GFR (Non-Af Amer) 12 POC Glucose (mg/dL) 104 (65-110) mg/dL Random Glucose 122 H (75-110) mg/dL Calcium 9.1 (8.4-10.2) mg/dL Phosphorus (2.5-4.5) mg/dl Iron (49-181) ug/dL TIBC (250-450) ug/dL % Saturation (20-55) % Ferritin (17.9-464) ng/Ml Total Bilirubin 0.8 (0.2-1.3) mg/dl AST 40 (17-59) U/L ALT 30 (21-72) U/L Alkaline Phosphatase 103 (38-126) U/L Total Protein 5.2 L (6.3-8.2) G/DL Albumin 2.8 L (3.5-5.0) g/dL Globulin 2.5 (2.2-3.9) gm/dL Albumin/Globulin Ratio 1.1 (1.0-2.1) Triglycerides (0-149) mg/DL Cholesterol (0-199) mg/dL LDL Cholesterol Direct (0-129) mg/dL HDL Cholesterol (30-70) MG/DL Ur Random Creatinine Urine Total Volume Microalb/Creat Ratio (<30) Laboratory Results - last 24 hr 03/24/18 03/24/18 03/24/18 06:10 10:59 13:41 WBC RBC Hgb Hct MCV MCH MCHC RDW Plt Count MPV Neut % (Auto) Lymph % (Auto) [place] % (Auto) Eos % (Auto) Baso % (Auto) Neut # (Auto) Lymph # (Auto) [place] # (Auto) Eos # (Auto) Baso # (Auto) Sodium 135 Potassium 4.2 Chloride 98 Carbon Dioxide 35 H Anion Gap 6 L BUN 36 H Creatinine 5.0 H Est GFR ( Amer) 15 Est GFR (Non-Af Amer) 12 POC Glucose (mg/dL) 104 Random Glucose 122 H Calcium 9.1 Phosphorus Iron 47 L TIBC 238 L % Saturation 20 Ferritin Total Bilirubin 0.8 AST 40 ALT 30 Alkaline Phosphatase 103 Total Protein 5.2 L Albumin 2.8 L Globulin 2.5 Albumin/Globulin Ratio 1.1 Triglycerides Cholesterol LDL Cholesterol Direct HDL Cholesterol Ur Random Creatinine Urine Total Volume Microalb/Creat Ratio 03/24/18 03/24/18 03/24/18 13:41 13:41 13:41 WBC 6.7 RBC 3.24 L Hgb 9.0 L Hct 27.4 L MCV 84.6 MCH 27.7 MCHC 32.8 L RDW 17.6 H Plt Count 177 MPV 6.9 L Neut % (Auto) 76.6 H Lymph % (Auto) 11.5 L [place] % (Auto) 7.7 Eos % (Auto) 2.4 Baso % (Auto) 1.8 Neut # (Auto) 5.1 Lymph # (Auto) 0.8 L [place] # (Auto) 0.5 Eos # (Auto) 0.2 Baso # (Auto) 0.1 Sodium Potassium Chloride Carbon Dioxide Anion Gap BUN Creatinine Est GFR ( Amer) Est GFR (Non-Af Amer) POC Glucose (mg/dL) Random Glucose Calcium Phosphorus Iron TIBC % Saturation Ferritin 421.0 Total Bilirubin AST ALT Alkaline Phosphatase Total Protein Albumin Globulin Albumin/Globulin Ratio Triglycerides Cholesterol LDL Cholesterol Direct HDL Cholesterol Ur Random Creatinine TNP Urine Total Volume TNP Microalb/Creat Ratio 03/24/18 03/24/18 03/25/18 16:01 21:41 05:57 WBC RBC Hgb Hct MCV MCH MCHC RDW Plt Count MPV Neut % (Auto) Lymph % (Auto) [place] % (Auto) Eos % (Auto) Baso % (Auto) Neut # (Auto) Lymph # (Auto) [place] # (Auto) Eos # (Auto) Baso # (Auto) Sodium Potassium Chloride Carbon Dioxide Anion Gap BUN Creatinine Est GFR ( Amer) Est GFR (Non-Af Amer) POC Glucose (mg/dL) 120 H 91 82 Random Glucose Calcium Phosphorus Iron TIBC % Saturation Ferritin Total Bilirubin AST ALT Alkaline Phosphatase Total Protein Albumin Globulin Albumin/Globulin Ratio Triglycerides Cholesterol LDL Cholesterol Direct HDL Cholesterol Ur Random Creatinine Urine Total Volume Microalb/Creat Ratio 03/25/18 03/25/18 06:42 06:42 WBC 5.9 RBC 3.23 L Hgb 9.0 L Hct 27.4 L MCV 85.0 MCH 27.8 MCHC 32.7 L RDW 17.3 H Plt Count 188 MPV Neut % (Auto) Lymph % (Auto) [place] % (Auto) Eos % (Auto) Baso % (Auto) Neut # (Auto) Lymph # (Auto) [place] # (Auto) Eos # (Auto) Baso # (Auto) Sodium 135 Potassium 3.8 Chloride 98 Carbon Dioxide 33 H Anion Gap 8 L BUN 45 H Creatinine 6.2 H Est GFR ( Amer) 11 Est GFR (Non-Af Amer) 9 POC Glucose (mg/dL) Random Glucose 83 Calcium 8.6 Phosphorus 4.1 Iron TIBC % Saturation Ferritin Total Bilirubin 0.8 AST 34 ALT 31 Alkaline Phosphatase 100 Total Protein 5.2 L Albumin 2.6 L Globulin 2.6 Albumin/Globulin Ratio 1.0 Triglycerides 97 Cholesterol 150 LDL Cholesterol Direct 73 HDL Cholesterol 43 Ur Random Creatinine Urine Total Volume Microalb/Creat Ratio Fingerstick Blood Sugar Results: 120 Review of Systems - Cardiovascular Cardiovascular: absent: As Per HPI, Acrocyanosis, Chest Pain, Chest Pain at Rest , Chest Pain with Activity, Claudication, Diaphoresis, Dyspnea, Dyspnea on Exertion, Edema, Irregular Heart Rhythm, Pain Radiating to Arm/Neck/Jaw, Leg Edema, Leg Ulcers, Lightheadedness, Orthopnea, Palpitations, Paroxysmal Nocturnal Dyspnea, Pedal Edema, Radiating Pain, Rapid Heart Rate, Slow Heart Rate, Syncope, Other, UNREMARKABLE - Respiratory Respiratory: absent: As Per HPI, Cough, Dyspnea, Hemoptysis, Dyspnea on Exertion , Wheezing, Snoring, Stridor, Pain on Inspiration, Chest Congestion, Excessive Mucous Production, Change in Mucous Color, Pain with Coughing, Other, UNREMARKABLE Critical Care Progress Note - Extremities/Vascular Does the Patient have a Central Venous Catheter?: No Does the Patient need a Central Venous Catheter?: No Does the Patient have a Vee Catheter?: No Does the Patient need a Vee Catheter?: No - Nutrition Nutrition: Nutrition Category Date Time Status Renal Diet [DIET] Diets 03/24/18 Dinner Active Assessment/Plan (1) Hypertensive urgency Current Visit: Yes Status: Acute Priority: High Comment: Off nicardipine drip Resumed home medications BP better controlled Scheduled for HD today (2) Chest pain Current Visit: Yes Status: Acute Priority: High Comment: Cardiac enzymes x3 negative Resumed home medications ECHO (3) ESRD (end stage renal disease) on dialysis Current Visit: Yes Status: Acute Priority: High Comment: Scheduled for HD today
[2018-03-25] MEDS: Ergocalciferol 50,000 Intl Units Cap PO SCH (08:44)
[2018-03-25] MEDS: Multivitamin Vitamin B Complex (Nephro-Vite) Tab PO SCH (08:45)
--- NOTE | 2018-03-25 09:39 | CP.PCM.PN ---
Subjective - Date & Time of Evaluation Date of Evaluation: 03/25/18 Time of Evaluation: 09:39 - Subjective Subjective: patient is conscious and alert not in acute distress sitting up in bed. No nausea or vomiting reported this morning and no chest pain Objective - Vital Signs/Intake and Output Vital Signs (last 24 hours): Temp Pulse Resp BP Pulse Ox 98.1 F 74 7 L 169/91 H 96 03/25/18 08:00 03/25/18 08:45 03/25/18 08:00 03/25/18 08:45 03/25/18 08:00 Intake and Output: 03/25/18 03/25/18 06:59 18:59 Intake Total 60 500 Output Total 250 Balance -190 500 - Medications Medications: Current Medications Allopurinol (Zyloprim) 100 mg PO DAILY [facility] Last Admin: 03/25/18 08:46 Dose: 100 mg Amlodipine Besylate (Norvasc) 10 mg PO DAILY [facility] Last Admin: 03/25/18 08:45 Dose: 10 mg Ergocalciferol (Drisdol 50,000 Intl Units Cap) 1 cap PO MWF [facility] Last Admin: 03/25/18 08:44 Dose: 1 cap Famotidine (Pepcid) 20 mg IVP DAILY [facility] Last Admin: 03/25/18 08:47 Dose: 20 mg Furosemide (Lasix) 80 mg PO TTS [facility] Last Admin: 03/24/18 16:55 Dose: Not Given Labetalol HCl (Trandate) 600 mg PO BID [facility] Last Admin: 03/25/18 08:46 Dose: 600 mg Losartan Potassium (Cozaar) 50 mg PO QPM [facility] Last Admin: 03/24/18 17:24 Dose: 50 mg Morphine Sulfate (Morphine) 2 mg IVP Q4 PRN PRN Reason: Pain, moderate (4-7) Morphine Sulfate (Morphine) 4 mg IVP Q4 PRN PRN Reason: Pain, severe (8-10) Nitroglycerin (Nitrostat Sl Tab) 0.4 mg SL Q5M PRN PRN Reason: Pain, moderate (4-7) Ondansetron HCl (Zofran Inj) 4 mg IVP Q4 PRN PRN Reason: Nausea/Vomiting Sevelamer HCl (Renagel) 2,400 mg PO TID [facility] Last Admin: 03/25/18 08:45 Dose: 2,400 mg Vitamin B Complex/Vit C/Folic Acid (Nephro-Kianna) 1 tab PO DAILY [facility] Last Admin: 03/25/18 08:45 Dose: 1 tab - Labs Labs: 03/25/18 06:42 03/25/18 06:42 PT 10.8 Seconds (9.8-13.1) 03/23/18 15:16 INR 1.0 03/23/18 15:16 APTT 38.8 Seconds (25.6-37.1) H 03/23/18 15:16 - Constitutional Appears: No Acute Distress - Eye Exam Eye Exam: Conjunctival injection - ENT Exam ENT Exam: Mucous Membranes Moist - Neck Exam Neck Exam: absent: Lymphadenopathy - Respiratory Exam Respiratory Exam: NORMAL BREATHING PATTERN. absent: Chest Wall Tenderness - Cardiovascular Exam Cardiovascular Exam: absent: Gallop, JVD, Rubs - GI/Abdominal Exam GI & Abdominal Exam: Soft, Normal Bowel Sounds - Extremities Exam Extremities Exam: absent: Calf Tenderness - Back Exam Back Exam: absent: CVA tenderness (L), CVA tenderness (R) - Neurological Exam Neurological Exam: Alert - Psychiatric Exam Psychiatric exam: Normal Affect - Skin Skin Exam: absent: Cyanosis Assessment and Plan (1) ESRD (end stage renal disease) on dialysis Assessment & Plan: Assessment: critical HTN emergency fluid overload with b/l pleural and pericardial effusion sclerotic lesion in vertebra Diabetic chronic Kidney Disease (E11.22) Hypertensive Chronic Kidney Disease (I12.0) End stage renal disease (N18.6) dependence on hemodialysis (Z99.2) (MWF) via PC Anemia (D64.9), Hyperphosphatemia (E83.39), Secondary Hyperparathyroidism (E21.1 ), HTN (I12.0) the plan Patient is feeling much better. Scheduled to have hemodialysis shortly Consent was taken Discussed with the dialysis nurse she is doing another patient next room blood pressure is still elevated add clonidine 0.1 mg twice a day hold if systolic 120 or less Continue on medication binders and the rest of the management as per primary team Status: Acute
[2018-03-25 10:31] LABS: SQUAMOUS EPITHIAL 1 /hpf (0-5); URINE BACTERIA RARE (<OCC); URINE BILIRUBIN NEGATIVE (NEGATIVE); URINE BLOOD NEGATIVE (NEGATIVE); URINE CLARITY SLIGHTY-CLOUDY (Clear); URINE COLOR YELLOW (YELLOW); URINE GLUCOSE (UA) 150 mg/dL (Normal); URINE LEUKOCYTE ESTERASE TRACE Leu/uL (Negative); URINE PROTEIN >=500 mg/dL (NEGATIVE); URINE UROBILINOGEN 0.2-1.0 mg/dL (0.2-1.0)
[2018-03-25 11:43] LABS: HIV 1&2 ANTIBODY NEGATIVE (NEGATIVE)
--- NOTE | 2018-03-25 11:53 | CP.PCM.PN ---
Subjective - Date & Time of Evaluation Date of Evaluation: 03/25/18 Time of Evaluation: 11:50 - Subjective Subjective: patient seen and examined at bedside. events overnight reviewed, needed nicardipine drip once again to reduce bp. patient states he feels well this morning, no n/v/headaches/chest pain for HD today no other complaints offered at this time Objective - Vital Signs/Intake and Output Vital Signs (last 24 hours): Temp Pulse Resp BP Pulse Ox 98.1 F 74 10 L 144/80 93 L 03/25/18 08:00 03/25/18 10:00 03/25/18 10:00 03/25/18 10:00 03/25/18 10:00 Intake and Output: 03/25/18 03/25/18 06:59 18:59 Intake Total 60 700 Output Total 250 Balance -190 700 - Medications Medications: Current Medications Allopurinol (Zyloprim) 100 mg PO DAILY [facility] Last Admin: 03/25/18 08:46 Dose: 100 mg Amlodipine Besylate (Norvasc) 10 mg PO DAILY [facility] Last Admin: 03/25/18 08:45 Dose: 10 mg Clonidine HCl (Catapres) 0.1 mg PO BID [facility] Ergocalciferol (Drisdol 50,000 Intl Units Cap) 1 cap PO MWF [facility] Last Admin: 03/25/18 08:44 Dose: 1 cap Famotidine (Pepcid) 20 mg IVP DAILY [facility] Last Admin: 03/25/18 08:47 Dose: 20 mg Furosemide (Lasix) 80 mg PO TTS [facility] Last Admin: 03/24/18 16:55 Dose: Not Given Labetalol HCl (Trandate) 600 mg PO BID [facility] Last Admin: 03/25/18 08:46 Dose: 600 mg Losartan Potassium (Cozaar) 50 mg PO QPM [facility] Last Admin: 03/24/18 17:24 Dose: 50 mg Morphine Sulfate (Morphine) 2 mg IVP Q4 PRN PRN Reason: Pain, moderate (4-7) Morphine Sulfate (Morphine) 4 mg IVP Q4 PRN PRN Reason: Pain, severe (8-10) Nitroglycerin (Nitrostat Sl Tab) 0.4 mg SL Q5M PRN PRN Reason: Pain, moderate (4-7) Ondansetron HCl (Zofran Inj) 4 mg IVP Q4 PRN PRN Reason: Nausea/Vomiting Sevelamer HCl (Renagel) 2,400 mg PO TID [facility] Last Admin: 03/25/18 08:45 Dose: 2,400 mg Vitamin B Complex/Vit C/Folic Acid (Nephro-Kianna) 1 tab PO DAILY [facility] Last Admin: 03/25/18 08:45 Dose: 1 tab - Labs Labs: 03/25/18 06:42 03/25/18 06:42 PT 10.8 Seconds (9.8-13.1) 03/23/18 15:16 INR 1.0 03/23/18 15:16 APTT 38.8 Seconds (25.6-37.1) H 03/23/18 15:16 - Constitutional Appears: Non-toxic, No Acute Distress - Head Exam Head Exam: ATRAUMATIC, NORMAL INSPECTION, NORMOCEPHALIC - Eye Exam Eye Exam: Normal appearance - Respiratory Exam Respiratory Exam: Decreased Breath Sounds, Clear to Ausculation Bilateral, NORMAL BREATHING PATTERN - Cardiovascular Exam Cardiovascular Exam: REGULAR RHYTHM, +S1, +S2. absent: Murmur - GI/Abdominal Exam GI & Abdominal Exam: Soft, Normal Bowel Sounds. absent: Tenderness - Back Exam Back Exam: NORMAL INSPECTION - Neurological Exam Neurological Exam: Alert, Awake, Oriented x3 - Psychiatric Exam Psychiatric exam: Normal Affect, Normal Mood - Skin Skin Exam: Normal Color, Warm Assessment and Plan - Assessment and Plan (Free Text) Assessment: 58 yo w/ DMII, HTN, ESRD admitted due to hypertensive emergency and chest pain 1) Hypertensive emergency - improved, though continues to have episodes of elevated BP requiring nicardipine drip asymptomatic oral meds adjusted cardiology following ct head negative 2) ESRD on HD (MWF) nephrology following pleural effusion/pericardial effusion likely due to esrd as per patient chronic for HD today 4) Chest pain- ruled out ACS, resolved 5) DM, type II not on any home meds accucheck ACHS renal/diabetic diet dvt prophylaxis SC lovenox
[2018-03-25 11:54] LABS: HEPATITIS B SURFACE AG Negative (NEGATIVE)
[2018-03-25 11:59] LABS: HEPATITIS B CORE AB NEGATIVE (NEGATIVE)
[2018-03-25 12:11] LABS: HEPATITIS C ANTIBODY NEGATIVE (NEGATIVE)
--- NOTE | 2018-03-25 15:11 | CARD ---
APPROVED REPORT Date of service: 03/25/2018 EXAM: Two-dimensional and M-mode echocardiogram with Doppler and color Doppler. Other Information Quality : GoodRhythm : NSR INDICATION Pericardial Effusion 2D DIMENSIONS IVSd1.42 (0.7-1.1cm)LVDd5.30 (3.9-5.9cm) LVOT Diameter2.41 (1.8-2.4cm)PWd1.00 (0.7-1.1cm) IVSs2.00 (0.8-1.2cm)LVDs3.22 (2.5-4.0cm) FS (%) 38.1 %PWs1.97 (0.8-1.2cm) M-Mode DIMENSIONS Left Atrium (MM)4.16 (2.5-4.0cm)IVSd1.44 (0.7-1.1cm) Aortic Root3.06 (2.2-3.7cm)LVDd5.56 (4.0-5.6cm) Aortic Cusp Exc.2.16 (1.5-2.0cm)PWd1.47 (0.7-1.1cm) IVSs1.97 cmFS (%) 33 % LVDs3.72 (2.0-3.8cm)PWs1.88 cm Aortic Valve AoV Peak Wgbedxqn921.1cm/sAoV VTI30.9cmAO Peak GR.6mmHg LVOT Peak Daiytbwy69.3cm/sLVOT VTI20.79cmAO Mean GR.4mmHg Mitral Valve MV E Ssqkmoxv64.2cm/sMV DECEL [id number] A Qhcfmrfp51.7cm/s MV PNF62zgB/A ratio1.4MVA (PHT)3.10cm2 TDI Lateral E' Peak V4.81cm/sMedial E' Peak V4.89cm/sE/Lateral E'18.8 E/Medial E'18.4 LEFT VENTRICLE The left ventricle is normal size. There is mild to moderate concentric left ventricular hypertrophy. The left ventricular systolic function is normal. The estimated ejection fraction is 55% No regional wall motion abnormalities noted.. The left ventricular diastolic function is normal. No left ventricle thrombus noted on this study. There is no ventricular septal defect visualized. There is no mass noted in the left ventricle. RIGHT VENTRICLE The right ventricle is normal size. There is normal right ventricular wall thickness. The right ventricular systolic function is normal. ATRIA The left atrium size is mildly dilated The right atrium size is normal. The interatrial septum is intact with no evidence for an atrial septal defect. AORTIC VALVE The aortic valve is normal in structure. No aortic regurgitation is present. There is no aortic valvular stenosis. MITRAL VALVE The mitral valve is normal in structure. There is no mitral valve stenosis. There is mild mitral valve regurgitation noted. TRICUSPID VALVE The tricuspid valve is normal in structure. There is no tricuspid valve regurgitation noted. PULMONIC VALVE The pulmonary valve is normal in structure. There is no pulmonic valvular regurgitation. GREAT VESSELS The aortic root is normal in size. The ascending aorta is normal in size. The pulmonary artery is normal. The IVC is normal in size and collapses >50% with inspiration. PERICARDIAL EFFUSION There is a small circumferential pericardial effusion. pericardial effusion without evidence of compressive physiology <Conclusion> Mild mitral insufficiency Dilated left atrium Mild to moderate LVH Normal LV systolic function The estimated ejection fraction is 55% Small circumferential pericardial effusion
[2018-03-26] MEDS: Multivitamin Vitamin B Complex (Nephro-Vite) Tab PO SCH (08:11)
--- NOTE | 2018-03-26 08:58 | CP.CCUPN ---
CCU Subjective - Physician Review Subjective (Free Text): 03/26/18 08:59 The patient was Seen/interviewed and examined by me at the bedside during ICU round, Medical records reviewed and Management issues were discussed and formulated with the house staff. Events reviewed 58 Years old Male with PMHx of HTN, Type II DM (controlled by diet) and End Stage Kidney Disease and was started dialysis 2-3 weeks back. Who presented to the Emergency department with chief complaint of substernal area chest pain and uncontrolled HTN initially 240 systolic which was started on iv nicardipine drip. He was admitted to ICU with CP and very high BP. Patient states didn't take home meds for blood pressure. This morning he feels well, denies any chest pain or SOB Patient initially on nicardipine drip for BP overnight which kept his BP well controlled, nicardipine drip was discontinued Resumed home medications including Losartan, Labetalol, Clonidine and calcium channel abilio. BP still high, will increase the dose Received HD yesterday Cardiac enzymes x3 negative CCU Objective - Vital Signs / Intake & Output Vital Signs (Last 4 hours): Vital Signs Temp Pulse Resp BP Pulse Ox 03/26/18 08:13 79 187/107 H 03/26/18 08:11 187/107 H 03/26/18 08:00 98.5 F 79 8 L 187/107 H 100 03/26/18 06:00 77 9 L 167/95 H 100 Intake and Output (Last 8hrs): Intake & Output 03/25/18 03/26/18 03/26/18 22:59 06:59 14:59 Intake Total 400 0 Balance 400 0 Intake: Intake, Piggyback 0 Oral 400 0 Other: # Voids Urine, Voided 1 1 # Bowel Movements 0 - Physical Exam Head: Positive for: Atraumatic, Normocephalic Pupils: Positive for: PERRL. Negative for: Sluggish, Non-Reactive Extroacular Muscles: Positive for: EOMI Conjunctiva: Positive for: Normal. Negative for: Injected, Icteric Mouth: Positive for: Moist Mucous Membranes Pharnyx: Positive for: Normal. Negative for: ERYTHEMA, EXUDATE Neck: Positive for: Normal Range of Motion, Trachea Midline. Negative for: Meningeal Signs, MIDLINE TENDERNESS, Paraspinal Tenderness, JVD, Lymphadenopathy , Bruit, Other Respiratory/Chest: Positive for: Clear to Auscultation, Good Air Exchange. Negative for: Respiratory Distress, Accessory Muscle Use, Wheezes, Rales, Retracting, Rhonchi Cardiovascular: Positive for: Regular Rate and Rhythm, Normal S1, S2, Peripheal Pulses Present. Negative for: Murmurs, Tachycardic, Bradycardic Abdomen: Positive for: Normal Bowel Sounds. Negative for: Tenderness, Distention Back: Negative for: CVA Tenderness Neurological: Positive for: GCS=15, CN II-XII Intact, Speech Normal, Motor Func Grossly Intact, Normal Sensory Function - Medications Active Medications: Active Medications Generic Name Dose Route Start Last Admin Trade Name Freq PRN Reason Stop Dose Admin Allopurinol 100 mg 03/24/18 09:00 03/26/18 08:11 Zyloprim PO 100 mg DAILY [facility] Administration Amlodipine Besylate 10 mg 03/24/18 09:45 03/26/18 08:13 Norvasc PO 10 mg DAILY [facility] Administration Clonidine HCl 0.2 mg 03/26/18 09:00 Catapres PO BID [facility] Ergocalciferol 1 cap 03/25/18 09:00 03/25/18 08:44 Drisdol 50,000 Intl Units Cap PO 1 cap MWF [facility] Administration Famotidine 20 mg 03/24/18 09:00 03/26/18 08:18 Pepcid IVP 20 mg DAILY [facility] Administration Furosemide 80 mg 03/24/18 13:00 03/26/18 08:11 Lasix PO 80 mg TTS [facility] Administration Labetalol HCl 600 mg 03/24/18 09:00 03/26/18 08:13 Trandate PO 600 mg BID [facility] Administration Losartan Potassium 100 mg 03/26/18 09:00 Cozaar PO DAILY [facility] Nitroglycerin 0.4 mg 03/24/18 00:30 Nitrostat Sl Tab SL Q5M PRN Pain, moderate (4-7) Ondansetron HCl 4 mg 03/24/18 00:25 Zofran Inj IVP Q4 PRN Nausea/Vomiting Sevelamer HCl 2,400 mg 03/24/18 09:00 03/26/18 08:11 Renagel PO 2,400 mg TID [facility] Administration Vitamin B Complex/Vit C/Folic Acid 1 tab 03/24/18 10:15 03/26/18 08:11 Nephro-Kianna PO 1 tab DAILY [facility] Administration - Patient Studies Lab Studies: Microbiology Studies 03/24/18 11:32 MRSA Culture (Admit) - Final Nose MRSA NOT DETECTED Lab Studies 03/26/18 03/25/18 03/25/18 Range/Units 06:01 22:04 16:47 POC Glucose (mg/dL) 82 99 100 (65-110) mg/dL Hemoglobin A1c (4.2-6.5) % 25-OH Vitamin D Total (30.0-100.0) NG/ML PTH Intact Whole Molec (14-64) pg/mL Plasma Metanephrine Plasma Normetanephrine Plas Total Metaneph Urine Color (YELLOW) Urine Clarity (Clear) Urine pH (5.0-8.0) Ur Specific [place] (1.003-1.030) Urine Protein (NEGATIVE) mg/dL Urine Glucose (UA) (Normal) mg/dL Urine Ketones (NEGATIVE) mg/dL Urine Blood (NEGATIVE) Urine Nitrate (NEGATIVE) Urine Bilirubin (NEGATIVE) Urine Urobilinogen (0.2-1.0) mg/dL Ur Leukocyte Esterase (Negative) Ricardo/uL Urine RBC (Auto) (0-3) /hpf Urine Microscopic WBC (0-5) /hpf Ur Squamous Epith Cells (0-5) /hpf Urine Bacteria (<OCC) SHADE Nuclear Membr Pat (Negative) Hep Bs Antigen (NEGATIVE) Hep Bs Antibody (NEGATIVE) Hep B Core IgM Ab (NEGATIVE) Hepatitis C Antibody (NEGATIVE) HIV 1&2 Antibody Screen (NEGATIVE) 03/25/18 03/25/18 03/25/18 Range/Units 11:10 06:42 06:42 POC Glucose (mg/dL) 113 H (65-110) mg/dL Hemoglobin A1c (4.2-6.5) % 25-OH Vitamin D Total < 12.8 L (30.0-100.0) NG/ML PTH Intact Whole Molec (14-64) pg/mL Plasma Metanephrine TNP Plasma Normetanephrine TNP Plas Total Metaneph TNP Urine Color (YELLOW) Urine Clarity (Clear) Urine pH (5.0-8.0) Ur Specific [place] (1.003-1.030) Urine Protein (NEGATIVE) mg/dL Urine Glucose (UA) (Normal) mg/dL Urine Ketones (NEGATIVE) mg/dL Urine Blood (NEGATIVE) Urine Nitrate (NEGATIVE) Urine Bilirubin (NEGATIVE) Urine Urobilinogen (0.2-1.0) mg/dL Ur Leukocyte Esterase (Negative) Ricardo/uL Urine RBC (Auto) (0-3) /hpf Urine Microscopic WBC (0-5) /hpf Ur Squamous Epith Cells (0-5) /hpf Urine Bacteria (<OCC) SHADE Nuclear Membr Pat (Negative) Hep Bs Antigen (NEGATIVE) Hep Bs Antibody (NEGATIVE) Hep B Core IgM Ab (NEGATIVE) Hepatitis C Antibody (NEGATIVE) HIV 1&2 Antibody Screen (NEGATIVE) 03/25/18 03/24/18 03/24/18 Range/Units 06:42 13:41 13:41 POC Glucose (mg/dL) (65-110) mg/dL Hemoglobin A1c 5.4 (4.2-6.5) % 25-OH Vitamin D Total (30.0-100.0) NG/ML PTH Intact Whole Molec 186 H (14-64) pg/mL Plasma Metanephrine Plasma Normetanephrine Plas Total Metaneph Urine Color (YELLOW) Urine Clarity (Clear) Urine pH (5.0-8.0) Ur Specific [place] (1.003-1.030) Urine Protein (NEGATIVE) mg/dL Urine Glucose (UA) (Normal) mg/dL Urine Ketones (NEGATIVE) mg/dL Urine Blood (NEGATIVE) Urine Nitrate (NEGATIVE) Urine Bilirubin (NEGATIVE) Urine Urobilinogen (0.2-1.0) mg/dL Ur Leukocyte Esterase (Negative) Ricardo/uL Urine RBC (Auto) (0-3) /hpf Urine Microscopic WBC (0-5) /hpf Ur Squamous Epith Cells (0-5) /hpf Urine Bacteria (<OCC) SHADE Nuclear Membr Pat Negative (Negative) Hep Bs Antigen (NEGATIVE) Hep Bs Antibody (NEGATIVE) Hep B Core IgM Ab (NEGATIVE) Hepatitis C Antibody (NEGATIVE) HIV 1&2 Antibody Screen (NEGATIVE) 03/24/18 03/24/18 03/24/18 Range/Units 13:41 13:41 13:41 POC Glucose (mg/dL) (65-110) mg/dL Hemoglobin A1c (4.2-6.5) % 25-OH Vitamin D Total (30.0-100.0) NG/ML PTH Intact Whole Molec (14-64) pg/mL Plasma Metanephrine Plasma Normetanephrine Plas Total Metaneph Urine Color (YELLOW) Urine Clarity (Clear) Urine pH (5.0-8.0) Ur Specific [place] (1.003-1.030) Urine Protein (NEGATIVE) mg/dL Urine Glucose (UA) (Normal) mg/dL Urine Ketones (NEGATIVE) mg/dL Urine Blood (NEGATIVE) Urine Nitrate (NEGATIVE) Urine Bilirubin (NEGATIVE) Urine Urobilinogen (0.2-1.0) mg/dL Ur Leukocyte Esterase (Negative) Ricardo/uL Urine RBC (Auto) (0-3) /hpf Urine Microscopic WBC (0-5) /hpf Ur Squamous Epith Cells (0-5) /hpf Urine Bacteria (<OCC) SHADE Nuclear Membr Pat (Negative) Hep Bs Antigen Negative (NEGATIVE) Hep Bs Antibody Negative (NEGATIVE) Hep B Core IgM Ab Negative (NEGATIVE) Hepatitis C Antibody Negative (NEGATIVE) HIV 1&2 Antibody Screen Negative (NEGATIVE) 03/24/18 Range/Units 10:10 POC Glucose (mg/dL) (65-110) mg/dL Hemoglobin A1c (4.2-6.5) % 25-OH Vitamin D Total (30.0-100.0) NG/ML PTH Intact Whole Molec (14-64) pg/mL Plasma Metanephrine Plasma Normetanephrine Plas Total Metaneph Urine Color Yellow (YELLOW) Urine Clarity Slighty-cloudy (Clear) Urine pH 7.0 (5.0-8.0) Ur Specific [place] 1.027 (1.003-1.030) Urine Protein >=500 (NEGATIVE) mg/dL Urine Glucose (UA) 150 (Normal) mg/dL Urine Ketones Negative (NEGATIVE) mg/dL Urine Blood Negative (NEGATIVE) Urine Nitrate Negative (NEGATIVE) Urine Bilirubin Negative (NEGATIVE) Urine Urobilinogen 0.2-1.0 (0.2-1.0) mg/dL Ur Leukocyte Esterase Trace H (Negative) Ricardo/uL Urine RBC (Auto) 4 H (0-3) /hpf Urine Microscopic WBC 21 H (0-5) /hpf Ur Squamous Epith Cells 1 (0-5) /hpf Urine Bacteria Rare (<OCC) SHADE Nuclear Membr Pat (Negative) Hep Bs Antigen (NEGATIVE) Hep Bs Antibody (NEGATIVE) Hep B Core IgM Ab (NEGATIVE) Hepatitis C Antibody (NEGATIVE) HIV 1&2 Antibody Screen (NEGATIVE) Laboratory Results - last 24 hr 03/24/18 03/24/18 03/24/18 10:10 13:41 13:41 POC Glucose (mg/dL) Hemoglobin A1c 25-OH Vitamin D Total PTH Intact Whole Molec Plasma Metanephrine Plasma Normetanephrine Plas Total Metaneph Urine Color Yellow Urine Clarity Slighty-cloudy Urine pH 7.0 Ur Specific [place] 1.027 Urine Protein >=500 Urine Glucose (UA) 150 Urine Ketones Negative Urine Blood Negative Urine Nitrate Negative Urine Bilirubin Negative Urine Urobilinogen 0.2-1.0 Ur Leukocyte Esterase Trace H Urine RBC (Auto) 4 H Urine Microscopic WBC 21 H Ur Squamous Epith Cells 1 Urine Bacteria Rare SHADE Nuclear Membr Pat Hep Bs Antigen Negative Hep Bs Antibody Hep B Core IgM Ab Negative Hepatitis C Antibody Negative HIV 1&2 Antibody Screen Negative 03/24/18 03/24/18 03/24/18 13:41 13:41 13:41 POC Glucose (mg/dL) Hemoglobin A1c 25-OH Vitamin D Total PTH Intact Whole [place]olec 186 H Plasma Metanephrine Plasma Normetanephrine Plas Total Metaneph Urine Color Urine Clarity Urine pH Ur Specific [place] Urine Protein Urine Glucose (UA) Urine Ketones Urine Blood Urine Nitrate Urine Bilirubin Urine Urobilinogen Ur Leukocyte Esterase Urine RBC (Auto) Urine Microscopic WBC Ur Squamous Epith Cells Urine Bacteria SHADE Nuclear Membr Pat Negative Hep Bs Antigen Hep Bs Antibody Negative Hep B Core IgM Ab Hepatitis C Antibody HIV 1&2 Antibody Screen 03/25/18 03/25/18 03/25/18 06:42 06:42 06:42 POC Glucose (mg/dL) Hemoglobin A1c 5.4 25-OH Vitamin D Total < 12.8 L PTH Intact Whole Molec Plasma Metanephrine TNP Plasma Normetanephrine TNP Plas Total Metaneph TNP Urine Color Urine Clarity Urine pH Ur Specific [place] Urine Protein Urine Glucose (UA) Urine Ketones Urine Blood Urine Nitrate Urine Bilirubin Urine Urobilinogen Ur Leukocyte Esterase Urine RBC (Auto) Urine Microscopic WBC Ur Squamous Epith Cells Urine Bacteria SHADE Nuclear Membr Pat Hep Bs Antigen Hep Bs Antibody Hep B Core IgM Ab Hepatitis C Antibody HIV 1&2 Antibody Screen 03/25/18 03/25/18 03/25/18 11:10 16:47 22:04 POC Glucose (mg/dL) 113 H 100 99 Hemoglobin A1c 25-OH Vitamin D Total PTH Intact Whole Molec Plasma Metanephrine Plasma Normetanephrine Plas Total Metaneph Urine Color Urine Clarity Urine pH Ur Specific [place] Urine Protein Urine Glucose (UA) Urine Ketones Urine Blood Urine Nitrate Urine Bilirubin Urine Urobilinogen Ur Leukocyte Esterase Urine RBC (Auto) Urine Microscopic WBC Ur Squamous Epith Cells Urine Bacteria SHADE Nuclear Membr Pat Hep Bs Antigen Hep Bs Antibody Hep B Core IgM Ab Hepatitis C Antibody HIV 1&2 Antibody Screen 03/26/18 06:01 POC Glucose (mg/dL) 82 Hemoglobin A1c 25-OH Vitamin D Total PTH Intact Whole Molec Plasma Metanephrine Plasma Normetanephrine Plas Total Metaneph Urine Color Urine Clarity Urine pH Ur Specific [place] Urine Protein Urine Glucose (UA) Urine Ketones Urine Blood Urine Nitrate Urine Bilirubin Urine Urobilinogen Ur Leukocyte Esterase Urine RBC (Auto) Urine Microscopic WBC Ur Squamous Epith Cells Urine Bacteria SHADE Nuclear Membr Pat Hep Bs Antigen Hep Bs Antibody Hep B Core IgM Ab Hepatitis C Antibody HIV 1&2 Antibody Screen Fingerstick Blood Sugar Results: 83 Critical Care Progress Note - Nutrition Nutrition: Nutrition Category Date Time Status Renal Diet [DIET] Diets 03/24/18 Dinner Active Assessment/Plan (1) Hypertensive urgency Current Visit: Yes Status: Acute Priority: High Comment: Off nicardipine drip Resumed home medications including Losartan, Labetalol, Clonidine and calcium channel abilio. BP still uncontrolled, will increase the dose (2) Chest pain Current Visit: Yes Status: Acute Priority: High Comment: Atypical chest pain Cardiac enzymes x3 negative Resumed home medications ECHO (3) ESRD (end stage renal disease) on dialysis Current Visit: Yes Status: Acute Priority: High Comment: HD as per renal
--- NOTE | 2018-03-26 09:26 | CP.PCM.PN ---
Subjective - Date & Time of Evaluation Date of Evaluation: 03/26/18 Time of Evaluation: 08:10 - Subjective Subjective: Slept well Tolerated HD well Sinus rhythm at 58 BPM BP 160/80 mm Hg JVP flat, no rales, no gallop Echo shows borderline LV contractility Mild/mod pericardial effusion No evidence of RV free wall collapse Increased dose of Losartan and Clonidine Stable from cardiac point of view. Objective - Vital Signs/Intake and Output Vital Signs (last 24 hours): Temp Pulse Resp BP Pulse Ox 98.5 F 79 8 L 187/107 H 100 03/26/18 08:00 03/26/18 08:13 03/26/18 08:00 03/26/18 08:13 03/26/18 08:00 Intake and Output: 03/26/18 03/26/18 06:59 18:59 Intake Total 0 Balance 0 - Medications Medications: Current Medications Allopurinol (Zyloprim) 100 mg PO DAILY [facility] Last Admin: 03/26/18 08:11 Dose: 100 mg Amlodipine Besylate (Norvasc) 10 mg PO DAILY [facility] Last Admin: 03/26/18 08:13 Dose: 10 mg Clonidine HCl (Catapres) 0.2 mg PO BID [facility] Ergocalciferol (Drisdol 50,000 Intl Units Cap) 1 cap PO MWF [facility] Last Admin: 03/25/18 08:44 Dose: 1 cap Famotidine (Pepcid) 20 mg IVP DAILY [facility] Last Admin: 03/26/18 08:18 Dose: 20 mg Furosemide (Lasix) 80 mg PO TTS [facility] Last Admin: 03/26/18 08:11 Dose: 80 mg Labetalol HCl (Trandate) 600 mg PO BID [facility] Last Admin: 03/26/18 08:13 Dose: 600 mg Losartan Potassium (Cozaar) 100 mg PO DAILY [facility] Nitroglycerin (Nitrostat Sl Tab) 0.4 mg SL Q5M PRN PRN Reason: Pain, moderate (4-7) Ondansetron HCl (Zofran Inj) 4 mg IVP Q4 PRN PRN Reason: Nausea/Vomiting Sevelamer HCl (Renagel) 2,400 mg PO TID [facility] Last Admin: 03/26/18 08:11 Dose: 2,400 mg Vitamin B Complex/Vit C/Folic Acid (Nephro-Kianna) 1 tab PO DAILY [facility] Last Admin: 03/26/18 08:11 Dose: 1 tab - Labs Labs: 03/25/18 06:42 03/25/18 06:42 PT 10.8 Seconds (9.8-13.1) 03/23/18 15:16 INR 1.0 03/23/18 15:16 APTT 38.8 Seconds (25.6-37.1) H 03/23/18 15:16
--- NOTE | 2018-03-26 10:50 | CP.PCM.PN ---
Subjective - Date & Time of Evaluation Date of Evaluation: 03/26/18 Time of Evaluation: 10:49 - Subjective Subjective: patient feeling good no chest pain no shortness of breath Objective - Vital Signs/Intake and Output Vital Signs (last 24 hours): Temp Pulse Resp BP Pulse Ox 98.5 F 76 12 172/93 H 93 L 03/26/18 08:00 03/26/18 10:04 03/26/18 10:00 03/26/18 10:04 03/26/18 10:00 Intake and Output: 03/26/18 03/26/18 06:59 18:59 Intake Total 0 300 Balance 0 300 - Medications Medications: Current Medications Allopurinol (Zyloprim) 100 mg PO DAILY [facility] Last Admin: 03/26/18 08:11 Dose: 100 mg Amlodipine Besylate (Norvasc) 10 mg PO DAILY [facility] Last Admin: 03/26/18 08:13 Dose: 10 mg Clonidine HCl (Catapres) 0.2 mg PO BID [facility] Last Admin: 03/26/18 10:04 Dose: 0.2 mg Ergocalciferol (Drisdol 50,000 Intl Units Cap) 1 cap PO MWF [facility] Last Admin: 03/25/18 08:44 Dose: 1 cap Famotidine (Pepcid) 20 mg IVP DAILY [facility] Last Admin: 03/26/18 08:18 Dose: 20 mg Furosemide (Lasix) 80 mg PO TTS [facility] Last Admin: 03/26/18 08:11 Dose: 80 mg Labetalol HCl (Trandate) 600 mg PO BID [facility] Last Admin: 03/26/18 08:13 Dose: 600 mg Losartan Potassium (Cozaar) 100 mg PO DAILY [facility] Last Admin: 03/26/18 10:03 Dose: 100 mg Nitroglycerin (Nitrostat Sl Tab) 0.4 mg SL Q5M PRN PRN Reason: Pain, moderate (4-7) Ondansetron HCl (Zofran Inj) 4 mg IVP Q4 PRN PRN Reason: Nausea/Vomiting Sevelamer HCl (Renagel) 2,400 mg PO TID [facility] Last Admin: 03/26/18 08:11 Dose: 2,400 mg Vitamin B Complex/Vit C/Folic Acid (Nephro-Kianna) 1 tab PO DAILY [facility] Last Admin: 03/26/18 08:11 Dose: 1 tab - Labs Labs: 03/25/18 06:42 03/25/18 06:42 PT 10.8 Seconds (9.8-13.1) 03/23/18 15:16 INR 1.0 03/23/18 15:16 APTT 38.8 Seconds (25.6-37.1) H 03/23/18 15:16 - Constitutional Appears: No Acute Distress - Eye Exam Eye Exam: Conjunctival injection - ENT Exam ENT Exam: Mucous Membranes Moist - Neck Exam Neck Exam: absent: Lymphadenopathy - Respiratory Exam Respiratory Exam: NORMAL BREATHING PATTERN. absent: Chest Wall Tenderness - Cardiovascular Exam Cardiovascular Exam: REGULAR RHYTHM. absent: Gallop, JVD, Rubs - GI/Abdominal Exam GI & Abdominal Exam: Soft, Normal Bowel Sounds - Extremities Exam Extremities Exam: absent: Calf Tenderness - Back Exam Back Exam: absent: CVA tenderness (L), CVA tenderness (R) - Neurological Exam Neurological Exam: Alert - Psychiatric Exam Psychiatric exam: Normal Affect - Skin Skin Exam: absent: Cyanosis Assessment and Plan (1) ESRD (end stage renal disease) on dialysis Assessment & Plan: HTN emergency fluid overload with b/l pleural small pericardial effusion sclerotic lesion in vertebra Diabetic chronic Kidney Disease (E11.22) Hypertensive Chronic Kidney Disease (I12.0) End stage renal disease (N18.6) dependence on hemodialysis (Z99.2) (MWF) via PC Anemia (D64.9), Hyperphosphatemia (E83.39), Secondary Hyperparathyroidism (E21.1 ), HTN (I12.0) the plan Patient tolerating hemodialysis well Pressure is still slightly elevated to increase the dose of clonidine and losartan makes it 100 mg daily No hemodynamic changes We will increase dialysis to 4 times a week Status: Acute
--- NOTE | 2018-03-26 16:13 | CP.PCM.PN ---
Subjective - Date & Time of Evaluation Date of Evaluation: 03/26/18 Time of Evaluation: 10:00 - Subjective Subjective: patient seen and examined at bedside this morning. Patient states feeling well. Denies chest pain, nausea, vomiting, abdominal pain. HD yesterday, without complications. BP continues to be elevated though not requiring drip. Objective - Vital Signs/Intake and Output Vital Signs (last 24 hours): Temp Pulse Resp BP Pulse Ox 98.8 F 73 19 147/83 98 03/26/18 12:00 03/26/18 13:44 03/26/18 13:44 03/26/18 13:44 03/26/18 13:44 Intake and Output: 03/26/18 03/26/18 06:59 18:59 Intake Total 0 420 Balance 0 420 - Medications Medications: Current Medications Allopurinol (Zyloprim) 100 mg PO DAILY [facility] Last Admin: 03/26/18 08:11 Dose: 100 mg Amlodipine Besylate (Norvasc) 10 mg PO DAILY [facility] Last Admin: 03/26/18 08:13 Dose: 10 mg Clonidine HCl (Catapres) 0.2 mg PO BID [facility] Last Admin: 03/26/18 10:04 Dose: 0.2 mg Epoetin Xu (Procrit) 5,000 unit IV MWF [facility] Ergocalciferol (Drisdol 50,000 Intl Units Cap) 1 cap PO MWF [facility] Last Admin: 03/25/18 08:44 Dose: 1 cap Famotidine (Pepcid) 20 mg IVP DAILY [facility] Last Admin: 03/26/18 08:18 Dose: 20 mg Furosemide (Lasix) 80 mg PO TTS [facility] Last Admin: 03/26/18 08:11 Dose: 80 mg Hydralazine HCl (Apresoline) 25 mg PO TID [facility] Last Admin: 03/26/18 12:33 Dose: 25 mg Labetalol HCl (Trandate) 600 mg PO BID [facility] Last Admin: 03/26/18 08:13 Dose: 600 mg Losartan Potassium (Cozaar) 100 mg PO DAILY [facility] Last Admin: 03/26/18 10:03 Dose: 100 mg Nitroglycerin (Nitrostat Sl Tab) 0.4 mg SL Q5M PRN PRN Reason: Pain, moderate (4-7) Ondansetron HCl (Zofran Inj) 4 mg IVP Q4 PRN PRN Reason: Nausea/Vomiting Sevelamer HCl (Renagel) 2,400 mg PO TID [facility] Last Admin: 03/26/18 12:33 Dose: 2,400 mg Vitamin B Complex/Vit C/Folic Acid (Nephro-Kianna) 1 tab PO DAILY [facility] Last Admin: 03/26/18 08:11 Dose: 1 tab - Labs Labs: 03/25/18 06:42 03/25/18 06:42 PT 10.8 Seconds (9.8-13.1) 03/23/18 15:16 INR 1.0 03/23/18 15:16 APTT 38.8 Seconds (25.6-37.1) H 03/23/18 15:16 - Constitutional Appears: Well, No Acute Distress - Head Exam Head Exam: ATRAUMATIC, NORMAL INSPECTION, NORMOCEPHALIC - Eye Exam Eye Exam: Normal appearance - Respiratory Exam Respiratory Exam: Clear to Ausculation Bilateral, NORMAL BREATHING PATTERN - Cardiovascular Exam Cardiovascular Exam: REGULAR RHYTHM, RRR, +S1, +S2 - GI/Abdominal Exam GI & Abdominal Exam: Soft, Normal Bowel Sounds. absent: Tenderness - Back Exam Back Exam: NORMAL INSPECTION - Neurological Exam Neurological Exam: Alert, Awake, Oriented x3 - Psychiatric Exam Psychiatric exam: Normal Affect, Normal Mood - Skin Skin Exam: Normal Color, Warm Assessment and Plan - Assessment and Plan (Free Text) Assessment: 58 yo w/ DMII, HTN, ESRD admitted due to hypertensive emergency and chest pain, noted to have pericardial/plueral effusions. Improving. 1) Hypertensive emergency - improved asymptomatic oral meds still requiring adjustment cardiology following ct head negative can transfer to telemetry floor 2) ESRD on HD (MWF) nephrology following pleural effusion/pericardial effusion likely due to esrd as per patient chronic 3) DM, type II not on any home meds accucheck ACHS renal/diabetic diet dvt prophylaxis SC lovenox
[2018-03-27] MEDS ORDERED: Epoetin Alfa 20000 UNIT/ML Inj IV SCH (09:00)
[2018-03-27 09:10] LABS: HEMOGLOBIN 8.9 g/dL (12.0-18.0); MEAN CELL VOLUME 84.3 fl (80.0-94.0); MEAN CORPUSCULAR HEMOGLOBIN 27.8 pg (27.0-31.0); RBC 3.19 Mil/uL (4.40-5.90); RED CELL DISTRIBUTION WIDTH 17.8 % (11.5-14.5); WHITE BLOOD COUNT 6.8 K/uL (4.8-10.8)
[2018-03-27] MEDS: Multivitamin Vitamin B Complex (Nephro-Vite) Tab PO SCH (09:35)
[2018-03-27] MEDS: Ergocalciferol 50,000 Intl Units Cap PO SCH (09:35)
[2018-03-27 09:40] LABS: CALCIUM 8.9 mg/dL (8.4-10.2)
--- NOTE | 2018-03-27 13:47 | CP.PCM.PN ---
Subjective - Date & Time of Evaluation Date of Evaluation: 03/27/18 Time of Evaluation: 13:46 - Subjective Subjective: patient conscious and alert not in acute distress he is comfortable no nausea no vomiting Objective - Vital Signs/Intake and Output Vital Signs (last 24 hours): Temp Pulse Resp BP Pulse Ox 98.6 F 80 18 147/76 98 03/27/18 12:35 03/27/18 12:35 03/27/18 12:35 03/27/18 12:35 03/27/18 12:35 - Medications Medications: Current Medications Allopurinol (Zyloprim) 100 mg PO DAILY [facility] Last Admin: 03/27/18 09:35 Dose: 100 mg Amlodipine Besylate (Norvasc) 10 mg PO DAILY [facility] Last Admin: 03/27/18 09:35 Dose: 10 mg Clonidine HCl (Catapres) 0.2 mg PO BID [facility] Last Admin: 03/27/18 09:36 Dose: 0.2 mg Epoetin Xu (Procrit) 5,000 unit IV MWF [facility] Ergocalciferol (Drisdol 50,000 Intl Units Cap) 1 cap PO MWF [facility] Last Admin: 03/27/18 09:35 Dose: 1 cap Famotidine (Pepcid) 20 mg PO DAILY [facility] Last Admin: 03/27/18 10:42 Dose: 20 mg Furosemide (Lasix) 80 mg PO TTS [facility] Last Admin: 03/26/18 08:11 Dose: 80 mg Hydralazine HCl (Apresoline) 25 mg PO TID [facility] Last Admin: 03/27/18 12:52 Dose: 25 mg Labetalol HCl (Trandate) 600 mg PO BID [facility] Last Admin: 03/27/18 09:36 Dose: 600 mg Losartan Potassium (Cozaar) 100 mg PO DAILY [facility] Last Admin: 03/27/18 09:35 Dose: 100 mg Nitroglycerin (Nitrostat Sl Tab) 0.4 mg SL Q5M PRN PRN Reason: Pain, moderate (4-7) Ondansetron HCl (Zofran Inj) 4 mg IVP Q4 PRN PRN Reason: Nausea/Vomiting Sevelamer HCl (Renagel) 2,400 mg PO TID [facility] Last Admin: 03/27/18 12:52 Dose: 2,400 mg Vitamin B Complex/Vit C/Folic Acid (Nephro-Kianna) 1 tab PO DAILY [facility] Last Admin: 03/27/18 09:35 Dose: 1 tab - Labs Labs: 03/27/18 09:00 03/27/18 09:00 PT 10.8 Seconds (9.8-13.1) 03/23/18 15:16 INR 1.0 03/23/18 15:16 APTT 38.8 Seconds (25.6-37.1) H 03/23/18 15:16 - Eye Exam Eye Exam: Conjunctival injection - ENT Exam ENT Exam: Mucous Membranes Moist - Respiratory Exam Respiratory Exam: NORMAL BREATHING PATTERN. absent: Chest Wall Tenderness - Cardiovascular Exam Cardiovascular Exam: absent: Gallop, JVD, Rubs - GI/Abdominal Exam GI & Abdominal Exam: Soft, Normal Bowel Sounds - Extremities Exam Extremities Exam: absent: Calf Tenderness - Back Exam Back Exam: absent: CVA tenderness (L), CVA tenderness (R) - Neurological Exam Neurological Exam: Alert - Psychiatric Exam Psychiatric exam: Normal Affect - Skin Skin Exam: absent: Cyanosis Assessment and Plan (1) ESRD (end stage renal disease) on dialysis Assessment & Plan: HTN emergency initial admission fluid overload with b/l pleural small pericardial effusion Diabetic chronic Kidney Disease (E11.22) Hypertensive Chronic Kidney Disease (I12.0) End stage renal disease (N18.6) dependence on hemodialysis (Z99.2) (MWF) via PC Anemia (D64.9), Hyperphosphatemia (E83.39), Secondary Hyperparathyroidism (E21.1 ), HTN (I12.0) the plan hemodialysis about to start now Discussed with the dialysis nurse with ultrafiltration about 2500 mL as tolerated Blood pressure better controlled on current medication Patient refused to go for 4 times a week dialysis he will discuss with his principal hardware architect as outpatient follow-up by his principal hardware architect as outpatient Status: Acute
[2018-03-27 15:45] VITALS: BP 141/85; PULSE 66; RESP 16; TEMP 97.9; O2SAT 99
--- NOTE | 2018-03-28 11:37 | CP.PCM.DIS ---
Provider - Provider Date of Admission: 03/23/18 18:24 Attending physician: Ian Bryan MD Time Spent in preparation of Discharge (in minutes): 20 Diagnosis - Discharge Diagnosis (1) Hypertensive urgency Status: Resolved Priority: High (2) Chest pain Status: Resolved Priority: High (3) ESRD (end stage renal disease) on dialysis Status: Chronic Priority: High Hospital Course - Lab Results Lab Results: Micro Results 03/24/18 11:32 Nose MRSA Culture (Admit) - Final MRSA NOT DETECTED Most Recent Lab Values WBC 6.8 K/uL (4.8-10.8) 03/27/18 09:00 RBC 3.19 Mil/uL (4.40-5.90) L 03/27/18 09:00 Hgb 8.9 g/dL (12.0-18.0) L 03/27/18 09:00 Hct 26.9 % (35.0-51.0) L 03/27/18 09:00 MCV 84.3 fl (80.0-94.0) 03/27/18 09:00 MCH 27.8 pg (27.0-31.0) 03/27/18 09:00 MCHC 33.0 g/dL (33.0-37.0) 03/27/18 09:00 RDW 17.8 % (11.5-14.5) H 03/27/18 09:00 Plt Count 181 K/uL (130-400) 03/27/18 09:00 MPV 6.9 fl (7.2-11.7) L 03/24/18 13:41 Neut % (Auto) 76.6 % (50.0-75.0) H 03/24/18 13:41 Lymph % (Auto) 11.5 % (20.0-40.0) L 03/24/18 13:41 [place]acken % (Auto) 7.7 % (0.0-10.0) 03/24/18 13:41 Eos % (Auto) 2.4 % (0.0-4.0) 03/24/18 13:41 Baso % (Auto) 1.8 % (0.0-2.0) 03/24/18 13:41 Neut # (Auto) 5.1 K/uL (1.8-7.0) 03/24/18 13:41 Lymph # (Auto) 0.8 K/uL (1.0-4.3) L 03/24/18 13:41 Bracken # (Auto) 0.5 K/uL (0.0-0.8) 03/24/18 13:41 Eos # (Auto) 0.2 K/uL (0.0-0.7) 03/24/18 13:41 Baso # (Auto) 0.1 K/uL (0.0-0.2) 03/24/18 13:41 Neutrophils % (Manual) 88 % (42-75) H 03/23/18 15:16 Lymphocytes % (Manual) 6 % (20-50) L 03/23/18 15:16 Monocytes % (Manual) 5 % (0-10) 03/23/18 15:16 Basophils % (Manual) 1 % (0-2) 03/23/18 15:16 Platelet Estimate Normal (NORMAL) 03/23/18 15:16 Hypochromasia (manual) Marked 03/23/18 15:16 Anisocytosis (manual) Slight 03/23/18 15:16 PT 10.8 Seconds (9.8-13.1) 03/23/18 15:16 INR 1.0 03/23/18 15:16 APTT 38.8 Seconds (25.6-37.1) H 03/23/18 15:16 Sodium 136 mmol/l (132-148) 03/27/18 09:00 Potassium 4.6 MMOL/L (3.6-5.0) 03/27/18 09:00 Chloride 100 mmol/L (98-107) 03/27/18 09:00 Carbon Dioxide 31 mmol/L (22-30) H 03/27/18 09:00 Anion Gap 10 (10-20) 03/27/18 09:00 BUN 37 mg/dl (9-20) H 03/27/18 09:00 Creatinine 6.6 mg/dl (0.8-1.5) H 03/27/18 09:00 Est GFR ( Amer) 11 03/27/18 09:00 Est GFR (Non-Af Amer) 9 03/27/18 09:00 POC Glucose (mg/dL) 119 mg/dL (65-110) H 03/27/18 15:57 Random Glucose 94 mg/dL (75-110) 03/27/18 09:00 Hemoglobin A1c 5.4 % (4.2-6.5) 03/25/18 06:42 Calcium 8.9 mg/dL (8.4-10.2) 03/27/18 09:00 Phosphorus 4.1 mg/dl (2.5-4.5) 03/25/18 06:42 Iron 47 ug/dL (49-181) L 03/24/18 13:41 TIBC 238 ug/dL (250-450) L 03/24/18 13:41 % Saturation 20 % (20-55) 03/24/18 13:41 Ferritin 421.0 ng/Ml (17.9-464) 03/24/18 13:41 Total Bilirubin 0.8 mg/dl (0.2-1.3) 03/25/18 06:42 AST 34 U/L (17-59) 03/25/18 06:42 ALT 31 U/L (21-72) 03/25/18 06:42 Alkaline Phosphatase 100 U/L (38-126) 03/25/18 06:42 Troponin I 0.1150 ng/mL (0.00-0.120) 03/24/18 06:10 Total Protein 5.2 G/DL (6.3-8.2) L 03/25/18 06:42 Albumin 2.6 g/dL (3.5-5.0) L 03/25/18 06:42 Globulin 2.6 gm/dL (2.2-3.9) 03/25/18 06:42 Albumin/Globulin Ratio 1.0 (1.0-2.1) 03/25/18 06:42 Triglycerides 97 mg/DL (0-149) 03/25/18 06:42 Cholesterol 150 mg/dL (0-199) 03/25/18 06:42 LDL Cholesterol Direct 73 mg/dL (0-129) 03/25/18 06:42 HDL Cholesterol 43 MG/DL (30-70) 03/25/18 06:42 Lipase 161 U/L (23-300) 03/23/18 15:16 Aldosterone 1 ng/dL 03/25/18 06:42 25-OH Vitamin D Total < 12.8 NG/ML (30.0-100.0) L 03/25/18 06:42 PTH Intact Whole Molec 186 pg/mL (14-64) H 03/24/18 13:41 Plasma Metanephrine TNP 03/25/18 06:42 Plasma Normetanephrine TNP 03/25/18 06:42 Plas Total Metaneph TNP 03/25/18 06:42 Urine Color Yellow (YELLOW) 03/24/18 10:10 Urine Clarity Slighty-cloudy (Clear) 03/24/18 10:10 Urine pH 7.0 (5.0-8.0) 03/24/18 10:10 Ur Specific [place] 1.027 (1.003-1.030) 03/24/18 10:10 Urine Protein >=500 mg/dL (NEGATIVE) 03/24/18 10:10 Urine Glucose (UA) 150 mg/dL (Normal) 03/24/18 10:10 Urine Ketones Negative mg/dL (NEGATIVE) 03/24/18 10:10 Urine Blood Negative (NEGATIVE) 03/24/18 10:10 Urine Nitrate Negative (NEGATIVE) 03/24/18 10:10 Urine Bilirubin Negative (NEGATIVE) 03/24/18 10:10 Urine Urobilinogen 0.2-1.0 mg/dL (0.2-1.0) 03/24/18 10:10 Ur Leukocyte Esterase Trace Ricardo/uL (Negative) H 03/24/18 10:10 Urine RBC (Auto) 4 /hpf (0-3) H 03/24/18 10:10 Urine Microscopic WBC 21 /hpf (0-5) H 03/24/18 10:10 Ur Squamous Epith Cells 1 /hpf (0-5) 03/24/18 10:10 Urine Bacteria Rare (<OCC) 03/24/18 10:10 Ur Random Creatinine TNP 03/24/18 13:41 U Random Total Protein 4514 mg/L 03/24/18 18:25 Urine Total Volume TNP 03/24/18 13:41 Microalb/Creat Ratio (<30) 03/24/18 13:41 SHADE Nuclear Membr Pat Negative (Negative) 03/24/18 13:41 Double Strand DNA Ab 1 IU/mL 03/24/18 13:41 Hep Bs Antigen Negative (NEGATIVE) 03/24/18 13:41 Hep Bs Antibody Negative (NEGATIVE) 03/24/18 13:41 Hep B Core IgM Ab Negative (NEGATIVE) 03/24/18 13:41 Hepatitis C Antibody Negative (NEGATIVE) 03/24/18 13:41 HIV 1&2 Antibody Screen Negative (NEGATIVE) 03/24/18 13:41 - Hospital Course Hospital Course: 58 yo w/ DMII, HTN, ESRD admitted due to hypertensive emergency and chest pain, noted to have pericardial/plueral effusions. Cardiology and Nephrology evaluated patient during hospitilization. Patient required nicardipine drip to control BP. Meds were adjusted to optimized BP. Patient's symptoms resolved. Patient received HD as scheduled. Patient to follow up with PCP, cartography/mapping technician, and copy chief as outpatient. Patient discharged in stable condition. Discharge Exam - Head Exam Head Exam: ATRAUMATIC, NORMAL INSPECTION, NORMOCEPHALIC Discharge Plan - Discharge Medications Prescriptions: amLODIPine [Norvasc] 10 mg PO DAILY #30 tab cloNIDine [Catapres] 0.2 mg PO BID #60 tab Ergocalciferol [Drisdol 50,000 Intl Units Cap] 1 cap PO MWF #30 cap Furosemide [Lasix] 80 mg PO TTS #30 tab hydrALAZINE [Apresoline] 25 mg PO TID #90 tab Labetalol [Trandate] 600 mg PO BID #60 tab Losartan [Cozaar] 100 mg PO DAILY #30 tab Sevelamer [Renagel] 2,400 mg PO TID #60 tab Vitamin B Complex/Vit C/Folic [Nephro-Kianna] 1 tab PO DAILY #30 tab - Follow Up Plan Condition: STABLE Disposition: HOME/ ROUTINE Instructions: High Blood Pressure (DC), Chronic Kidney Disease (DC), Hypertension (DC), Hypertension (GEN) Additional Instructions: follow up with pmd in 1 week continue dialysis -- Referrals: Robert Ulloa MD [Staff Provider] - Gabriel Mckinney MD [Staff Provider] - Sigifredo Barton MD [Family Provider] -
[2018-03-28 22:31] LABS: ALDO/PRA RATIO 12.5 Ratio (0.9-28.9)
== END 2018-03-27 19:30 | disposition home or self-care (01) | DRG 304 ==
LOC: H.ER 14:00 → H.ERHOLD 18:24 → OBSVTOIN 18:24 → H.ICU/CCU 03-24 01:22 → H.TEL 03-26 18:50
PROVIDERS: ADMIT Family Medicine; ATTEND Family Medicine
DX: I16.0 Hypertensive urgency (principal); N18.6 End stage renal disease; J90 Pleural effusion, not elsewhere classified; I31.3 Pericardial effusion (noninflammatory); N25.81 Secondary hyperparathyroidism of renal origin; I12.0 Hypertensive chronic kidney disease with stage 5 chronic kidney disease or end stage renal disease; Z99.2 Dependence on renal dialysis; R07.89 Other chest pain; E11.22 Type 2 diabetes mellitus with diabetic chronic kidney disease; E83.39 Other disorders of phosphorus metabolism; Z88.6 Allergy status to analgesic agent; Z91.013 Allergy to seafood; Z91.018 Allergy to other foods; E87.70 Fluid overload, unspecified; D63.1 Anemia in chronic kidney disease; M48.9 Spondylopathy, unspecified